=== PATIENT | female | born 1930 | race Caucasian/White ===

== ENCOUNTER 2016-08-25 11:56 | Inpatient (IN) | payer MEDICARE ==
[~2016-08-25] VITALS: Ht 157.5 cm; Wt 58.7 kg
[~2016-08-25 11:56] MED LIST: AMIO200T2 PO; AMIO200T7 PO; ASPI81TA2 PO; CALC1TAB PO; CALC3.7S NS; DIPH25CA58 PO; DOCU50CA9 PO; DRON400T PO; FLEC50TA PO; LOSA25TA4 PO; METO100T11 PO; MULT-658 PO; WARF2TAB PO; [UNRECOGNIZED DRUG - CODE] PO
[2016-08-25 15:00] VITALS: BP 128/88
[2016-08-25 15:13] VITALS: BP 128/88
[2016-08-25] MEDS ORDERED: DILTIAZEM 125 MG in IV DEXTROSE 5% 100 ML IV PRN ×2 (16:00→16:30)
--- NOTE | 2016-08-25 16:04 | PDOC2 ---
DINA GONZALEZ DIRECTOR PRESALES 08/25/16 1604: CARDIAC CONSULT DATE OF CONSULT Date of Consult DATE: 08/25/16 TIME: 15:50 REASON FOR CONSULT Reason for Consult: AFIB RVR REFERRING PHYSICIAN Referring Physician: Omar SOURCE Source: Chart review, Patient HISTORY OF PRESENT ILLNESS HISTORY OF PRESENT ILLNESS This is a pleasant 85 yo female admitted for complains of palpitations. Pt is significant for PAFIB (with past cardioversion) and has been treated with several rhythm maintenance medications but did not respond well with amiodarone and unable to tolerate flecainide. Reports that she tried multaq but unable to afford so she ended up with metoprolol optimization with coumadin therapy. She was seen in our office on 08/11/2016 and was on SR. Since then she has been having bouts of palpitations and it has become more frequent. Last Monday she had palpitations and noted that her BP was good but her HR was in the 200s which eventually got better. She contacted her granddaughter and told her to go to the hospital but refused. Again this happened Monday. During that time she felt fatigued like her energy got drained out of her. Denies any CP, SOA. No dizziness. Reports no excessive caffeinated beverages, no cold medicines and has been complaint with her medications. Reports that ther palpitations has been occurring and finally contacted her PCP which she was advised to be seen today and was noted with AFIB RVR and was instructed to be admitted. Currently she denies any complaints but her HR is int he 120s at rest. No prior CAD, VTE, CVA. No hx of GI, urinary bleed. No recent fever or chills. PAST MEDICAL HISTORY Cardiovascular: AFIB, HTN, Hyperlipidemia, Other (right atrial myxoma) Pulmonary: No pertinent hx CENTRAL NERVOUS SYSTEM: Other (hemorrhagic CVA 3 yrs ago) GI: No pertinent hx Heme/Onc: Other (chronic anticoagulation) Hepatobiliary: No pertinent hx Psych: No pertinent hx Musculoskeletal: Osteoarthritis Rheumatologic: No pertinent hx Infectious disease: No pertinent hx ENT: No pertinent hx Renal/: No pertinent hx Endocrine: Hypothyroidism, Osteopenia Dermatology: No pertinent hx PAST SURGICAL HISTORY Past Surgical History: Cataract Removal, Hernia Repair, Tonsillectomy, Other ( LHC; open thoracotomy with atrial myxoma removal) SOCIAL HISTORY Smoke: No ALCOHOL: none Drugs: None Lives: with Family ALLERGIES ALLERGIES: Coded Allergies: ciprofloxacin (Verified Allergy, Severe, HULLICINATE, 01/09/15) hydrocodone (Verified Allergy, Severe, HALLUCINATIONS, 01/09/15) losartan (Verified Allergy, Intermediate, Cough, 01/08/15) morphine (Verified Allergy, Intermediate, 01/08/15) naproxen (Verified Allergy, Intermediate, LEG CRAMPS, 08/26/16) tramadol (Verified Allergy, Intermediate, Itching, 08/26/16) QUIRINO Inhibitors (Verified Adverse Reaction, Intermediate, COUGH, 01/08/15) amiodarone (Verified Adverse Reaction, Intermediate, 01/08/15) hair loss ROS Review of System 14 point ROS evaluated with pertinent positives noted per HPI PHYSICAL EXAM General: Alert, Oriented X3, Cooperative, No acute distress HEENT: Atraumatic, Mucous membr. moist/pink Lungs: Clear to auscultation, Normal air movement Heart: Normal S1, Normal S2, Other (2/6 systolic murmur to LLS border; AFIB RVR ) Abdomen: Soft, No tenderness Extremities: No cyanosis, No edema Skin: No breakdown, No significant lesion Neuro: Normal speech, Sensation intact Psych/Mental Status: Mental status NL, Mood NL MUSCULOSKELETAL: Osteoarthritic changes both hands VITALS VITALS Vital Signs Date Time Temp Pulse Resp B/P Pulse Ox O2 Delivery O2 Flow Rate FiO2 08/25/16 15:13 97.7 137 18 128/88 Room Air 97.7 ECHOCARDIOGRAM ECHOCARDIOGRAM <Conclusion> The left ventricle is normal size. Left ventricle systolic function is normal. The Ejection Fraction is 55-60%. There is no significant aortic valvular stenosis. Doppler and Color Flow revealed trace aortic regurgitation. Doppler and Color Flow revealed mild mitral regurgitation. Doppler and Color Flow revealed mild tricuspid regurgitation. The PA pressure was estimated at 31 mmHg. DATE: 03/02/16 1218 STRESS TEST STRESS TEST Conclusion 1. Lexiscan nuclear test done according to protocol. 2. Baseline atrial fibrillation that continues during the test. 3. Baseline mild non specific ST changes that do not change with stress. 4. Nuclear scans show no fixed or reversible ischemia. 5. Normal left ventricular systolic function. 6. Low risk Lexiscan test. DATE: 05/23/13 1311 ASSESSMENT/PLAN ASSESSMENT/PLAN 1. PAFIB with RVR: notable for poor tolerance with flecainide and amiodarone in the past. Last successful cardioversion on 12/2014. Recently stopped taking multaq due to cost concerns. 2. HTN: controlled. Allergic to ACEi/ARB 3. HLP 4. Hypothyroidism 5. Chronic warfarin therapy: for stroke prevention 6. Hx of right atrial myxoma: s/p excision 7. Hx of hemorrhagic CVA 3 yrs ago. Recommendations 1. Cardizem bolus and drip. Dig IV x1. Continue with coumadin therapy 2. Continue with secondary prevention 3. Agree with low dose sotalol pending renal function 4. CMP, Mg, TSH 5. TSH, limited TTE and note EF. 6. Serial EKGs. 7. Start GI prophylaxis. Problems: WENDI COHEN MD 08/26/16 0953: CARDIAC CONSULT ALLERGIES ALLERGIES: Coded Allergies: ciprofloxacin (Verified Allergy, Severe, HULLICINATE, 01/09/15) hydrocodone (Verified Allergy, Severe, HALLUCINATIONS, 01/09/15) losartan (Verified Allergy, Intermediate, Cough, 01/08/15) morphine (Verified Allergy, Intermediate, 01/08/15) naproxen (Verified Allergy, Intermediate, LEG CRAMPS, 08/26/16) tramadol (Verified Allergy, Intermediate, Itching, 08/26/16) QUIRINO Inhibitors (Verified Adverse Reaction, Intermediate, COUGH, 01/08/15) amiodarone (Verified Adverse Reaction, Intermediate, 01/08/15) hair loss ASSESSMENT/PLAN ASSESSMENT/PLAN Patient seen and examined 08/25/16. Agree with STATISTICAL MACHINE MECHANIC's assessment and plan. Patient well known to a practice with paroxysmal atrial fibrillation off any antiarrhythmic due to side effects and on long-term and accommodation presented with palpitations and was found to have atrial fibrillation with rapid ventricular response. Recent 2-D echo showed normal LV systolic function. Start Cardizem infusion for rate control and sotalol for antiarrhythmic therapy. Check EKG for QTc interval in the morning. Thank you for your consultation Problems: DINA GONZALEZ APRN Aug 25, 2016 16:04 WENDI COHEN MD Aug 26, 2016 09:53
[2016-08-25] MEDS ORDERED: DILTIAZEM IV PUSH 25 MG/5 ML VIAL. IVP ONE (16:30)
--- NOTE | 2016-08-25 16:34 | EKG ---
[facility] [address] [place] [address] Test Date: 2016-08-25 Test Time: 16:26:53 Pat Name: KAREN HALL Department: Room: 200 1 Gender: F Steel Rule Inspector: KIN : 1930 Requested By: MASSIEL PANIAGUA Order Number: [id number] Reading MD: Measurements Intervals [place] Rate: 108 P: CA: QRS: -41 QRSD: 86 T: 30 QT: 350 QTc: 473 Interpretive Statements IRREGULAR RHYTHM, NO P-WAVE FOUND ABNORMAL LEFT AXIS DEVIATION LEFT ANTERIOR FASCICULAR BLOCK ABNORMAL ECG RI6.01 Compared to ECG 05/10/2013 19:25:41 Left-axis deviation now present Sinus rhythm no longer present First degree AV block no longer present
[2016-08-25] MEDS ORDERED: DIGOXIN 500 MCG/2 ML AMPUL. IV ONE (16:45)
--- NOTE | 2016-08-25 16:53 | RAD ---
EXAM: Chest one view. HISTORY: Atrial fibrillation with rapid ventricular response. COMPARISON: 02/21/2013. FINDINGS: A frontal view of the chest is obtained. There are changes of coronary artery bypass grafting. Epicardial pacer leads are noted. Hyperinflation is consistent with chronic obstructive pulmonary disease. There is no pneumothorax or pleural effusion. The heart is moderately enlarged. The aorta is calcified and tortuous. Linear opacities in the left base most likely indicate atelectasis. A small sclerotic focus in the left proximal humerus is stable chronically and likely represents a benign chondroid lesion such as an enchondroma. IMPRESSION: 1. Moderate cardiomegaly. 2. Hyperinflation suggests chronic obstructive pulmonary disease.
[2016-08-25] MEDS: CALCIUM CARB/VIT D3 500/200 TABLET PO SCH (17:58)
[2016-08-25 18:58] LABS: BASO # 0.1 x10^3/uL (0.0-0.2); BASO % 1 % (0-3); EOS % 2 % (0-3); HEMATOCRIT 42.2 % (36.0-47.0); HEMOGLOBIN 13.6 g/dL (12.0-15.5); LYMPH # 1.4 x10^3/uL (1.0-4.8); LYMPH % 25 % (24-48); MEAN CORPUSCULAR HEMOGLOBIN 31 pg (25-35); MEAN CORPUSCULAR HGB CONC 32 g/dL (31-37); MEAN CORPUSCULAR VOLUME 95 fL (79-100); MONO % 10 % (0-9); NEUT % 63 % (31-73); PLATELET COUNT 89 x10^3/uL (140-400); RED BLOOD COUNT 4.46 x10^6/uL (3.50-5.40); RED CELL DISTRIBUTION WIDTH 14.3 % (11.5-14.5); WHITE BLOOD COUNT 5.5 x10^3/uL (4.0-11.0)
[2016-08-25 19:00] VITALS: BP 140/48
[2016-08-25 19:08] LABS: INR 1.9 (0.8-1.1); PROTHROMBIN TIME PATIENT 20.7 SEC (11.7-14.0)
[2016-08-25 19:14] LABS: ALBUMIN 3.8 g/dL (3.4-5.0); CALCIUM 9.5 mg/dL (8.5-10.1); CREATININE 0.8 mg/dL (0.6-1.0); GFR 68.5; POTASSIUM 4.1 mmol/L (3.5-5.1); TOTAL BILIRUBIN 0.6 mg/dL (0.2-1.0); TOTAL PROTEIN 7.6 g/dL (6.4-8.2)
[2016-08-25 19:51] VITALS: BP 120/59
[2016-08-25 21:00] VITALS: BP 149/76
[2016-08-25] MEDS: DIPHENHYDRAMINE HCL 25 MG CAPSULE PO SCH (21:06)
[2016-08-25] MEDS: FAMOTIDINE 20 MG TABLET. PO SCH (21:06)
[2016-08-25] MEDS: SOTALOL 80 MG TABLET. PO SCH (21:07)
--- NOTE | 2016-08-25 21:29 | PDOC ---
Provider Note Provider Note H&P dictated. #[id number] MASSIEL PANIAGUA MD Aug 25, 2016 21:29
[2016-08-25 23:24] VITALS: BP 129/67
[2016-08-26] VITALS (9 sets, daily range): BP systolic 102–157; BP diastolic 56–86
--- NOTE | 2016-08-26 00:29 | HP ---
ADMIT DATE: 08/25/2016 LOCATION: [facility] REASON FOR ADMISSION TO THE HOSPITAL: Atrial fibrillation with rapid ventricular response of 140. HISTORY OF PRESENT ILLNESS: The patient is an 85-year-old female with atrial fibrillation and also she had a left atrial myxoma, had a surgery done probably 20 years ago and she has been on Coumadin as well as digoxin and the patient on the weekend went to [facility]. She was feeling lightheaded, no energy. She did not pass out and she thinks her heart rate was close to 200, but she did not come to the hospital, came to the office today and EKG shows AFib with RVR close to 120-140 range. The patient was admitted to the hospital. PAST MEDICAL HISTORY: Atrial fibrillation, hypertension, hyperlipidemia, hypothyroidism, Left atrial myxoma. The patient had a subdural hematoma 3 years ago, on Coumadin at that time. PAST SURGICAL HISTORY: Had an open thoracotomy with left atrial myxoma removed, cataract surgery, hernia repair, tonsillectomy, had a subdural hematoma. ALLERGIES: TO CIPRO, HYDROCODONE, LOSARTAN, MORPHINE, NAPROXEN, TRAMADOL, QUIRINO INHIBITORS CAUSING COUGH, AMIODARONE, HAD HAIR LOSS. PERSONAL HISTORY: No history of smoking, alcohol or drug abuse. MEDICATIONS AT HOME: Aspirin 81 mg daily, calcitonin, Miacalcin nose spray daily, calcium with vitamin D twice a day, Benadryl p.r.n., Colace 100 mg daily, levothyroxine 125 mcg daily, she was holding 1 day a week, metoprolol XL 100 mg daily, multivitamin daily, Coumadin 3 mg daily. REVIEW OF SYMPTOMS: CARDIAC: No chest pain, some palpitations, no energy, feeling drained. GASTROINTESTINAL: No nausea or vomiting. NEUROLOGICAL: No passing out. Rest of the 14 systems was reviewed and negative. FAMILY HISTORY: Positive for hypertension and heart problems. PHYSICAL EXAMINATION: GENERAL: The patient is not in any distress. VITAL SIGNS: Temperature 97, pulse 137, respirations 18, blood pressure 128/88 and 95% on room air. HEENT: Head is atraumatic. Pupils equal. Oral cavity, dentures. NECK: Supple. Thyroid not enlarged. JVD not elevated. CHEST: Symmetrical. There is scar of heart surgery for left atrial myxoma. CARDIOVASCULAR: S1, S2 ,irregular tachycardic. LUNGS: Clear to auscultation. No wheezing. ABDOMEN: Soft. Bowel sounds present. EXTERNAL GENITALIA: No Wilkerson. RECTAL: Deferred. EXTREMITIES: No calf tenderness, no edema. Pulses 1+. NEUROLOGIC: Cranial nerves intact. Power 5/5 in all extremities. LABORATORY DATA: Shows a white count of 5, hemoglobin 13, platelets 89. Electrolytes show sodium 141, potassium 4.1, chloride 103, bicarb 29, BUN 12, creatinine 0.8, glucose 176. LFTs were normal. TSH 6.0. INR 1.9. Chest x-ray, cardiomegaly. EKG: Atrial fibrillation with rapid ventricular response. FINAL IMPRESSION: 1. Atrial fibrillation with rapid ventricular response on coumadin. 2. Palpitations, feeling of fatigue. 3. Hypothyroidism. 4. History of left atrial myxoma,had surgery. 5. History of subdural hematoma in the past, 3 years ago. 6. Osteoporosis. 7. Anticoagulation on coumdin PLAN: At this time, admit to the hospital, hydrate with IV fluids. Cardiology consult. The patient was given digoxin, started on Cardizem drip for heart rate control, continue on Coumadin, pharmacy to adjust the dose to keep between 2 and 3. Further recommendations to follow.ECHO for LVF. MASSIEL PANIAGUA MD DR: ANGELICA/everton JOB#: [id number] / [id number] TAMMY
[2016-08-26 04:26] LABS: BASO # 0.1 x10^3/uL (0.0-0.2); BASO % 1 % (0-3); EOS % 3 % (0-3); HEMOGLOBIN 13.1 g/dL (12.0-15.5); LYMPH # 1.5 x10^3/uL (1.0-4.8); LYMPH % 32 % (24-48); MEAN CORPUSCULAR HEMOGLOBIN 30 pg (25-35); MEAN CORPUSCULAR HGB CONC 32 g/dL (31-37); MEAN CORPUSCULAR VOLUME 95 fL (79-100); MONO % 12 % (0-9); NEUT % 52 % (31-73); PLATELET COUNT 84 x10^3/uL (140-400); RED BLOOD COUNT 4.33 x10^6/uL (3.50-5.40); RED CELL DISTRIBUTION WIDTH 14.1 % (11.5-14.5); WHITE BLOOD COUNT 4.7 x10^3/uL (4.0-11.0)
[2016-08-26 04:58] LABS: CHOLESTEROL/HDL RATIO 2.6
[2016-08-26 05:27] LABS: PROTHROMBIN TIME PATIENT 21.5 SEC (11.7-14.0)
--- NOTE | 2016-08-26 07:08 | EKG ---
[facility] [address] [place] [address] Test Date: 2016-08-26 Test Time: 07:06:10 Pat Name: KAREN HALL Department: Room: 200 1 Gender: F Natural Foods Clerk: ZANDER : 1930 Requested By: MASSIEL PANIAGUA Order Number: [id number] Reading MD: Measurements Intervals [place] Rate: 66 P: MA: QRS: -36 QRSD: 84 T: 44 QT: 386 QTc: 406 Interpretive Statements IRREGULAR RHYTHM, NO P-WAVE FOUND ABNORMAL LEFT AXIS DEVIATION LEFT ANTERIOR FASCICULAR BLOCK QRS(T) CONTOUR ABNORMALITY CONSISTENT WITH SEPTAL INFARCT AGE UNDETERMINED T ABNORMALITY IN ANTERIOR LEADS ABNORMAL ECG RI6.01 Compared to ECG 05/10/2013 19:25:41 Left-axis deviation now present Myocardial infarct finding now present T-wave abnormality now present Sinus rhythm no longer present First degree AV block no longer present
[2016-08-26 07:46] LABS: CALCIUM 9.1 mg/dL (8.5-10.1); CREATININE 0.7 mg/dL (0.6-1.0); GFR 79.9; POTASSIUM 3.9 mmol/L (3.5-5.1)
--- NOTE | 2016-08-26 08:59 | RAD ---
EXAM: CT head without contrast. HISTORY: Severe headache. History of subdural hematoma. TECHNIQUE: Computed tomography of the head was performed without intravenous contrast. COMPARISON: 05/12/2013. FINDINGS: There is no intracranial hemorrhage. Hypoattenuation within the periventricular white matter indicates mild to moderate chronic small vessel ischemic change. The ventricles are normal in size and position. The visualized paranasal sinuses appear clear. There are changes of bilateral cataract surgery. The temporal bones are unremarkable. The calvarium reveals no suspicious lesions. IMPRESSION: 1. No acute intracranial findings. 2. Mild to moderate chronic small vessel ischemic white matter change. *One or more of the following individualized dose reduction techniques were utilized for this examination: 1. Automated exposure control. 2. Adjustment of the mA and/or kV according to patient size. 3. Use of iterative reconstruction technique.
[2016-08-26] MEDS ORDERED: METOPROLOL SUCC 24HR ER 100 MG TAB.ER.24H. PO SCH (09:00)
[2016-08-26] MEDS: LEVOTHYROXINE 125 MCG TABLET PO SCH (09:55)
[2016-08-26] MEDS: SOTALOL 80 MG TABLET. PO SCH ×2 (09:56→21:46)
[2016-08-26] MEDS: CALCIUM CARB/VIT D3 500/200 TABLET PO SCH ×2 (09:57→16:54)
[2016-08-26] MEDS: ASPIRIN 81 MG TAB.CHEW PO SCH (09:57)
[2016-08-26] MEDS: DOCUSATE SODIUM 100 MG CAPSULE PO SCH (09:57)
[2016-08-26] MEDS: MULTIVITAMIN with MINERAL TABLET. PO SCH (09:58)
[2016-08-26] MEDS: CALCITONIN,SALMON NASAL 200 UNITS/SPRAY 3.7ML BOTTLE. NS SCH (09:58)
--- NOTE | 2016-08-26 10:12 | PDOC ---
PROGRESS NOTES Subjective Subjective feels better Objective Objective Vital Signs Date Time Temp Pulse Resp B/P Pulse Ox O2 Delivery O2 Flow Rate FiO2 08/26/16 09:56 67 129/71 08/26/16 07:00 97.9 18 95 Room Air 97.9 Intake and Output 08/26/16 07:00 Intake Total 400 ml Balance 400 ml Intake Oral 400 ml # Voids 4 Physical Exam Abdomen: Soft, No tenderness Heart: Normal S1, Normal S2, Other (2/6 systolic murmur to LLS border; AFIB RVR ) Extremities: No cyanosis, No edema General: Alert, Oriented X3, Cooperative, No acute distress HEENT: Atraumatic, Mucous membr. moist/pink Lungs: Clear to auscultation, Normal air movement MUSCULOSKELETAL: Osteoarthritic changes both hands Neuro: Normal speech, Sensation intact Psych/Mental Status: Mental status NL, Mood NL Skin: No breakdown, No significant lesion Assessment Assessment FINAL IMPRESSION: 1. Atrial fibrillation with rapid ventricular response. 2. Palpitations, feeling of fatigue. 3. Hypothyroidism. 4. History of left atrial myxoma. 5. History of subdural hematoma in the past, 3 years ago. 6. Osteoporosis. PLAN: ct head today iv cardizam drip. coumadin ,inr 2.9. labs ok .tsh slightly high. echo today. At this time, admit to the hospital, hydrate with IV fluids. Cardiology consult. The patient was given digoxin, started on Cardizem drip for heart rate control, on Coumadin, pharmacy to adjust the dose to keep between 2 and 3. Further recommendations to follow. Problems: Comment Review of Relevant I have reviewed the following items enma (where applicable) has been applied. Labs Laboratory Tests Test 08/25/16 18:45 08/26/16 03:18 White Blood Count 5.5x10^3/uL (4.0-11.0) 4.7x10^3/uL (4.0-11.0) Red Blood Count 4.46x10^6/uL (3.50-5.40) 4.33x10^6/uL (3.50-5.40) Hemoglobin 13.6g/dL (12.0-15.5) 13.1g/dL (12.0-15.5) Hematocrit 42.2% (36.0-47.0) 41.0% (36.0-47.0) Mean Corpuscular Volume 95fL (79-100) 95fL (79-100) Mean Corpuscular Hemoglobin 31pg (25-35) 30pg (25-35) Mean Corpuscular Hemoglobin Concent 32g/dL (31-37) 32g/dL (31-37) Red Cell Distribution Width 14.3% (11.5-14.5) 14.1% (11.5-14.5) Platelet Count 89x10^3/uL (140-400) 84x10^3/uL (140-400) Neutrophils (%) (Auto) 63% (31-73) 52% (31-73) Lymphocytes (%) (Auto) 25% (24-48) 32% (24-48) Monocytes (%) (Auto) 10% (0-9) 12% (0-9) Eosinophils (%) (Auto) 2% (0-3) 3% (0-3) Basophils (%) (Auto) 1% (0-3) 1% (0-3) Neutrophils # (Auto) 3.5x10^3uL (1.8-7.7) 2.4x10^3uL (1.8-7.7) Lymphocytes # (Auto) 1.4x10^3/uL (1.0-4.8) 1.5x10^3/uL (1.0-4.8) Monocytes # (Auto) 0.5x10^3/uL (0.0-1.1) 0.5x10^3/uL (0.0-1.1) Eosinophils # (Auto) 0.1x10^3/uL (0.0-0.7) 0.1x10^3/uL (0.0-0.7) Basophils # (Auto) 0.1x10^3/uL (0.0-0.2) 0.1x10^3/uL (0.0-0.2) Prothrombin Time 20.7SEC (11.7-14.0) 21.5SEC (11.7-14.0) Prothromb Time International Ratio 1.9 (0.8-1.1) 2.0 (0.8-1.1) Sodium Level 141mmol/L (136-145) 144mmol/L (136-145) Potassium Level 4.1mmol/L (3.5-5.1) 3.9mmol/L (3.5-5.1) Chloride Level 103mmol/L (98-107) 105mmol/L (98-107) Carbon Dioxide Level 29mmol/L (21-32) 30mmol/L (21-32) Anion Gap 9 (6-14) 9 (6-14) Blood Urea Nitrogen 12mg/dL (7-20) 11mg/dL (7-20) Creatinine 0.8mg/dL (0.6-1.0) 0.7mg/dL (0.6-1.0) Estimated GFR (Cockcroft-Gault) 68.5 79.9 BUN/Creatinine Ratio 15 (6-20) Glucose Level 176mg/dL (70-99) 85mg/dL (70-99) Calcium Level 9.5mg/dL (8.5-10.1) 9.1mg/dL (8.5-10.1) Total Bilirubin 0.6mg/dL (0.2-1.0) Aspartate Amino Transf (AST/SGOT) 23U/L (15-37) Alanine Aminotransferase (ALT/SGPT) 18U/L (14-59) Alkaline Phosphatase 79U/L (46-116) Total Protein 7.6g/dL (6.4-8.2) Albumin 3.8g/dL (3.4-5.0) Albumin/Globulin Ratio 1.0 (1.0-1.7) Thyroid Stimulating Hormone (TSH) 6.002uIU/mL (0.358-3.74) Triglycerides Level 77mg/dL (0-150) Cholesterol Level 143mg/dL (0-200) LDL Cholesterol, Calculated 72mg/dL (0-100) VLDL Cholesterol, Calculated 15mg/dL (0-40) HDL Cholesterol 56mg/dL (40-60) Cholesterol/HDL Ratio 2.6 Medications Current Medications Aspirin (Children'S Aspirin) 81 mg DAILY PO Last administered on 08/26/16 09: 57; Start 08/26/16 at 09:00 Calcitonin [place] (Miacalcin Nasal) 1 spray DAILY NS Last administered on 09:58; Start 08/26/16 at 09:00 Calcium/Vitamin D (Oscal D 500mg/ 200uts) 1 tab BIDWMEALS PO Last administered on 08/26/16 09:57; Start 08/25/16 at 17:00 Digoxin (Lanoxin) 500 mcg 1X ONCE IV Last administered on 08/25/16 17:58; Start 08/25/16 at 16:45; Stop 08/25/16 at 16:46; Status DC Diltiazem HCl 10 mg 10 mg 1X ONCE IVP Last administered on 08/25/16 17:05; Start 08/25/16 at 16:30; Stop 08/25/16 at 16:31; Status DC Diltiazem HCl/ Dextrose (Cardizem) 125 ml @ 0 mls/hr CONT PRN IV PRN; Start 08/25/16 at 16:00; Stop 08/25/16 at 16:32; Status DC Diltiazem HCl/ Dextrose (Cardizem) 125 ml @ 0 mls/hr CONT PRN IV SEE I/O RECORD Last administered on 08/25/16 17:06; Start 08/25/16 at 16:30 Diphenhydramine HCl (Benadryl) 25 mg HS PO Last administered on 08/25/16 21:06 ; Start 08/25/16 at 21:00 Docusate Sodium (Colace) 100 mg DAILY PO Last administered on 08/26/16 09:57; Start 08/26/16 at 09:00 Famotidine (Pepcid) 20 mg QHS PO Last administered on 08/25/16 21:06; Start 08/25/16 at 21:00 Levothyroxine Sodium (Synthroid) 125 mcg DAILYAC PO Last administered on 09:55; Start 08/26/16 at 07:30 Metoprolol Succinate (Toprol Xl) 100 mg DAILY PO ; Start 08/26/16 at 09:00; Stop 08/26/16 at 09:00; Status DC Multivitamins (Thera M Plus) 1 tab DAILY PO Last administered on 08/26/16 09: 58; Start 08/26/16 at 09:00 Sotalol HCl (Betapace) 40 mg BID PO Last administered on 08/26/16 09:56; Start 08/25/16 at 21:00 Warfarin Sodium (Coumadin Per Physician) 1 each PRN DAILY PRN MC SEE COMMENTS Last administered on 08/26/16t 07:37; Start 08/25/16 at 17:00 Warfarin Sodium (Coumadin) 3 mg DAILY16 PO ; Start 08/26/16 at 16:00 Vitals/I & O Vital Sign - Last 24 Hours 08/25/16 08/25/16 08/25/16 08/25/16 15:00 15:13 17:05 17:58 Temp 97.7 97.7 97.7 97.7 Pulse 137 137 111 111 Resp 18 18 B/P 128/88 128/88 128/88 128/88 O2 Delivery Room Air Room Air 08/25/16 08/25/16 08/25/16 08/25/16 19:00 19:30 19:51 21:00 Temp 97.8 97.8 Pulse 74 66 66 Resp 14 B/P 140/48 120/59 149/76 Pulse Ox 95 O2 Delivery Room Air Room Air 08/25/16 08/25/16 08/26/16 08/26/16 21:07 23:24 02:00 03:03 Temp 97.7 97.6 97.7 97.6 Pulse 66 65 64 66 Resp 16 16 B/P 120/59 129/67 126/56 102/60 Pulse Ox 95 96 O2 Delivery Room Air Room Air 08/26/16 08/26/16 08/26/16 08/26/16 04:00 06:00 07:00 09:56 Temp 97.9 97.9 Pulse 66 64 67 67 Resp 18 B/P 121/61 129/65 129/71 129/71 Pulse Ox 95 O2 Delivery Room Air Intake and Output 08/25/16 08/25/16 08/26/16 15:00 23:00 07:00 Intake Total 400 ml Balance 400 ml MASSIEL PANIAGUA MD Aug 26, 2016 10:12
--- NOTE | 2016-08-26 11:07 | PDOC ---
DINA GONZALEZ IMPRESSION PRINTER 08/26/16 1107: CARDIO Progress Notes Date and Time Date of Service 08/26/2016 Time of Evaluation 1000 Subjective Subjective: No Chest Pain, No shortness of breath, No Palpitations, No Dizziness Vitals Vitals Vital Signs Date Time Temp Pulse Resp B/P Pulse Ox O2 Delivery O2 Flow Rate FiO2 08/26/16 10:25 97.5 80 18 157/86 95 Room Air 97.5 Weight Weight [ ] Input and Output Intake and Output Intake and Output 08/26/16 07:00 Intake Total 400 ml Balance 400 ml Intake Oral 400 ml # Voids 4 Laboratory Labs Laboratory Tests Test 08/25/16 18:45 08/26/16 03:18 White Blood Count 5.5x10^3/uL (4.0-11.0) 4.7x10^3/uL (4.0-11.0) Red Blood Count 4.46x10^6/uL (3.50-5.40) 4.33x10^6/uL (3.50-5.40) Hemoglobin 13.6g/dL (12.0-15.5) 13.1g/dL (12.0-15.5) Hematocrit 42.2% (36.0-47.0) 41.0% (36.0-47.0) Mean Corpuscular Volume 95fL (79-100) 95fL (79-100) Mean Corpuscular Hemoglobin 31pg (25-35) 30pg (25-35) Mean Corpuscular Hemoglobin Concent 32g/dL (31-37) 32g/dL (31-37) Red Cell Distribution Width 14.3% (11.5-14.5) 14.1% (11.5-14.5) Platelet Count 89x10^3/uL (140-400) 84x10^3/uL (140-400) Neutrophils (%) (Auto) 63% (31-73) 52% (31-73) Lymphocytes (%) (Auto) 25% (24-48) 32% (24-48) Monocytes (%) (Auto) 10% (0-9) 12% (0-9) Eosinophils (%) (Auto) 2% (0-3) 3% (0-3) Basophils (%) (Auto) 1% (0-3) 1% (0-3) Neutrophils # (Auto) 3.5x10^3uL (1.8-7.7) 2.4x10^3uL (1.8-7.7) Lymphocytes # (Auto) 1.4x10^3/uL (1.0-4.8) 1.5x10^3/uL (1.0-4.8) Monocytes # (Auto) 0.5x10^3/uL (0.0-1.1) 0.5x10^3/uL (0.0-1.1) Eosinophils # (Auto) 0.1x10^3/uL (0.0-0.7) 0.1x10^3/uL (0.0-0.7) Basophils # (Auto) 0.1x10^3/uL (0.0-0.2) 0.1x10^3/uL (0.0-0.2) Prothrombin Time 20.7SEC (11.7-14.0) 21.5SEC (11.7-14.0) Prothromb Time International Ratio 1.9 (0.8-1.1) 2.0 (0.8-1.1) Sodium Level 141mmol/L (136-145) 144mmol/L (136-145) Potassium Level 4.1mmol/L (3.5-5.1) 3.9mmol/L (3.5-5.1) Chloride Level 103mmol/L (98-107) 105mmol/L (98-107) Carbon Dioxide Level 29mmol/L (21-32) 30mmol/L (21-32) Anion Gap 9 (6-14) 9 (6-14) Blood Urea Nitrogen 12mg/dL (7-20) 11mg/dL (7-20) Creatinine 0.8mg/dL (0.6-1.0) 0.7mg/dL (0.6-1.0) Estimated GFR (Cockcroft-Gault) 68.5 79.9 BUN/Creatinine Ratio 15 (6-20) Glucose Level 176mg/dL (70-99) 85mg/dL (70-99) Calcium Level 9.5mg/dL (8.5-10.1) 9.1mg/dL (8.5-10.1) Total Bilirubin 0.6mg/dL (0.2-1.0) Aspartate Amino Transf (AST/SGOT) 23U/L (15-37) Alanine Aminotransferase (ALT/SGPT) 18U/L (14-59) Alkaline Phosphatase 79U/L (46-116) Total Protein 7.6g/dL (6.4-8.2) Albumin 3.8g/dL (3.4-5.0) Albumin/Globulin Ratio 1.0 (1.0-1.7) Thyroid Stimulating Hormone (TSH) 6.002uIU/mL (0.358-3.74) Triglycerides Level 77mg/dL (0-150) Cholesterol Level 143mg/dL (0-200) LDL Cholesterol, Calculated 72mg/dL (0-100) VLDL Cholesterol, Calculated 15mg/dL (0-40) HDL Cholesterol 56mg/dL (40-60) Cholesterol/HDL Ratio 2.6 Physical Exam HEENT: Neck Supple W Full Motion Chest: Symmetric LUNGS: Clear to Auscultation Heart: S1S2, irregularly irregular Abdomen: Soft N/T Extremities: No Edema, No Calf Tenderness Neurology: alert, oriented, follow commands Assessment Assessment 1. PAFIB with RVR: alternating to atrial flutter/afib/SR. rate controlled 2. HTN: controlled but episodes at high end 3. HLP: lipids on goal 4. Hypothyroidism: not therapeutic with TSH at 6. 5. Chronic warfarin therapy: for stroke prevention. INR 2.0 6. Hx of right atrial myxoma: s/p excision 7. Hx of hemorrhagic CVA 3 yrs ago. Recommendations 1. Change cardizem to PO 120 mg CD. Continue with sotalol. Rx given 2. Will consider imdur if BP remains labile. completely DC home metoprolol. 5. Limited TTE pending 6. QTc today 406, repeat EKG tomorrow. 7. Anticipate DC to home tomorrow. WENDI COHEN MD 08/26/16 1610: CARDIO Progress Notes Assessment Assessment Patient seen and examined. Agree with FIELD CONTROL INSPECTOR's assessment and plan. Telemetry showed the patient is going in and out of sinus rhythm. Heart rate better controlled. Change Cardizem to by mouth. Continue sotalol. 2-D echo showed normal LV function. Continue warfarin. Possible discharge home in the morning. DINA GONZALEZ APRN Aug 26, 2016 11:07 WENDI COHEN MD Aug 26, 2016 16:10
--- NOTE | 2016-08-26 11:19 | CARD ---
APPROVED REPORT EXAM: Two-dimensional and M-mode echocardiogram with Doppler and color Doppler. Other Information Quality : GoodHR: 84bpm Rhythm : Atrial Fibrillation INDICATION Left ventricular ejection fraction evaluation 2D DIMENSIONS RVDd1.6 (2.9-3.5cm)IVSd0.9 (0.7-1.1cm) LVDd3.9 (3.9-5.9cm)PWd0.9 (0.7-1.1cm) LVDs2.5 (2.5-4.0cm)FS (%) 36.2 % SV43.3 mlLVEF(%)66.5 (>50%) LEFT VENTRICLE The left ventricle is normal size. There is normal left ventricular wall thickness. The left ventricu lar systolic function is normal. The Ejection Fraction is 60-65%. Not assessed at time of exam. RIGHT VENTRICLE The right ventricle is normal size. There is normal right ventricular wall thickness. The right ventr icular systolic function is normal. ATRIA The left atrium is mildly dilated. The right atrium size is normal. AORTIC VALVE The aortic valve is mildly sclerotic. There is no significant aortic valve stenosis. MITRAL VALVE Mitral annular calcification is mild. The mitral valve leaflets are thickened. There is no evidence o f mitral valve prolapse. There is no mitral valve stenosis. TRICUSPID VALVE The tricuspid valve is normal in structure and function. PULMONIC VALVE There is no pulmonic valvular stenosis. GREAT VESSELS The aortic root is normal in size. The ascending aorta is normal in size. Not assessed at exam time. PERICARDIAL EFFUSION There is no evidence of significant pericardial effusion. Critical Notification Critical Value: No <Conclusion> Limited echocardiogram. Color duplex not performed. The left ventricular systolic function is normal. The Ejection Fraction is 60-65%. The left atrium is mildly dilated. There is no evidence of significant pericardial effusion.
[2016-08-26] MEDS ORDERED: DILTIAZEM HCL 120 MG CAP.ER.24H PO SCH (11:30)
[2016-08-26] MEDS: WARFARIN 2 MG TABLET. PO SCH (16:54)
[2016-08-26] MEDS: FAMOTIDINE 20 MG TABLET. PO SCH (21:45)
[2016-08-26] MEDS: DIPHENHYDRAMINE HCL 25 MG CAPSULE PO SCH (21:46)
--- NOTE | 2016-08-27 05:53 | EKG ---
[facility] [address] [place] [address] Test Date: 2016-08-27 Test Time: 05:44:47 Pat Name: KAREN HALL Department: Room: 200 1 Gender: F Interface Engineer: PRISCILLA : [id number] Requested By: DINA GONZALEZ Order Number: [id number] Reading MD: Measurements Intervals [place] Rate: 92 P: OR: QRS: -50 QRSD: 84 T: 34 QT: 362 QTc: 453 Interpretive Statements IRREGULAR RHYTHM, NO P-WAVE FOUND ABNORMAL LEFT AXIS DEVIATION R-S TRANSITION ZONE IN V LEADS DISPLACED TO THE LEFT S1,S2,S3 PATTERN LEFT ANTERIOR FASCICULAR BLOCK CONSIDER LEFT VENTRICULAR HYPERTROPHY ST & T ABNORMALITY, CONSIDER ANTERIOR ISCHEMIA OR LEFT VENTRICULAR STRAIN ABNORMAL ECG RI6.01 Compared to ECG 05/10/2013 19:25:41 Left-axis deviation now present T-wave abnormality now present Possible ischemia now present Sinus rhythm no longer present First degree AV block no longer present
[2016-08-27 07:00] VITALS: BP 149/78
--- NOTE | 2016-08-27 07:35 | PDOC ---
OSWALDOABRAMGEETHA FILLING AND PACKING SUPERVISOR 08/27/16 0735: IM PROGRESS NOTES- Subjective Subjective no chest pain, no dyspnea Objective Objective alert appropriate Vitals Vital Signs Date Time Temp Pulse Resp B/P Pulse Ox O2 Delivery O2 Flow Rate FiO2 08/27/16 03:00 66 Room Air 08/26/16 23:36 97.6 22 134/67 96 97.6 Input & Output Intake and Output 08/27/16 07:00 Intake Total 760 ml Balance 760 ml Intake Oral 720 ml IV Total 40 ml # Voids 5 Physical Exam Physical Exam General appearance - alert,well appearing, and in no distress and oriented to person, place, and time Mental Status - alert, oriented to person, place, and time, affect appropriate to mood Head - normal Chest - clear to auscultation, no wheezes, rales or rhonchi, symmetric air entry Heart - S1 and S2 normal Abdomen - soft, nontender, nondistended, no masses or organomegaly Neurological - no acute focal neurological deficit Musculoskeletal - no muscular tenderness noted Extremities - no pedal edema Skin - warm and dry Labs Laboratory Tests Test 08/25/16 18:45 08/26/16 03:18 White Blood Count 5.5x10^3/uL (4.0-11.0) 4.7x10^3/uL (4.0-11.0) Red Blood Count 4.46x10^6/uL (3.50-5.40) 4.33x10^6/uL (3.50-5.40) Hemoglobin 13.6g/dL (12.0-15.5) 13.1g/dL (12.0-15.5) Hematocrit 42.2% (36.0-47.0) 41.0% (36.0-47.0) Mean Corpuscular Volume 95fL (79-100) 95fL (79-100) Mean Corpuscular Hemoglobin 31pg (25-35) 30pg (25-35) Mean Corpuscular Hemoglobin Concent 32g/dL (31-37) 32g/dL (31-37) Red Cell Distribution Width 14.3% (11.5-14.5) 14.1% (11.5-14.5) Platelet Count 89x10^3/uL (140-400) 84x10^3/uL (140-400) Neutrophils (%) (Auto) 63% (31-73) 52% (31-73) Lymphocytes (%) (Auto) 25% (24-48) 32% (24-48) Monocytes (%) (Auto) 10% (0-9) 12% (0-9) Eosinophils (%) (Auto) 2% (0-3) 3% (0-3) Basophils (%) (Auto) 1% (0-3) 1% (0-3) Neutrophils # (Auto) 3.5x10^3uL (1.8-7.7) 2.4x10^3uL (1.8-7.7) Lymphocytes # (Auto) 1.4x10^3/uL (1.0-4.8) 1.5x10^3/uL (1.0-4.8) Monocytes # (Auto) 0.5x10^3/uL (0.0-1.1) 0.5x10^3/uL (0.0-1.1) Eosinophils # (Auto) 0.1x10^3/uL (0.0-0.7) 0.1x10^3/uL (0.0-0.7) Basophils # (Auto) 0.1x10^3/uL (0.0-0.2) 0.1x10^3/uL (0.0-0.2) Prothrombin Time 20.7SEC (11.7-14.0) 21.5SEC (11.7-14.0) Prothromb Time International Ratio 1.9 (0.8-1.1) 2.0 (0.8-1.1) Sodium Level 141mmol/L (136-145) 144mmol/L (136-145) Potassium Level 4.1mmol/L (3.5-5.1) 3.9mmol/L (3.5-5.1) Chloride Level 103mmol/L (98-107) 105mmol/L (98-107) Carbon Dioxide Level 29mmol/L (21-32) 30mmol/L (21-32) Anion Gap 9 (6-14) 9 (6-14) Blood Urea Nitrogen 12mg/dL (7-20) 11mg/dL (7-20) Creatinine 0.8mg/dL (0.6-1.0) 0.7mg/dL (0.6-1.0) Estimated GFR (Cockcroft-Gault) 68.5 79.9 BUN/Creatinine Ratio 15 (6-20) Glucose Level 176mg/dL (70-99) 85mg/dL (70-99) Calcium Level 9.5mg/dL (8.5-10.1) 9.1mg/dL (8.5-10.1) Total Bilirubin 0.6mg/dL (0.2-1.0) Aspartate Amino Transf (AST/SGOT) 23U/L (15-37) Alanine Aminotransferase (ALT/SGPT) 18U/L (14-59) Alkaline Phosphatase 79U/L (46-116) Total Protein 7.6g/dL (6.4-8.2) Albumin 3.8g/dL (3.4-5.0) Albumin/Globulin Ratio 1.0 (1.0-1.7) Thyroid Stimulating Hormone (TSH) 6.002uIU/mL (0.358-3.74) Triglycerides Level 77mg/dL (0-150) Cholesterol Level 143mg/dL (0-200) LDL Cholesterol, Calculated 72mg/dL (0-100) VLDL Cholesterol, Calculated 15mg/dL (0-40) HDL Cholesterol 56mg/dL (40-60) Cholesterol/HDL Ratio 2.6 Meds Current Medications Aspirin (Children'S Aspirin) 81 mg DAILY PO Last administered on 08/26/16 09: 57; Start 08/26/16 at 09:00 Calcitonin [place] (Miacalcin Nasal) 1 spray DAILY NS Last administered on 09:58; Start 08/26/16 at 09:00 Diltiazem HCl (Cardizem 24hr Cd) 120 mg DAILY PO Last administered on 13:28; Start 08/26/16 at 11:30 Docusate Sodium (Colace) 100 mg DAILY PO Last administered on 08/26/16 09:57; Start 08/26/16 at 09:00 Levothyroxine Sodium (Synthroid) 125 mcg DAILYAC PO Last administered on 09:55; Start 08/26/16 at 07:30 Metoprolol Succinate (Toprol Xl) 100 mg DAILY PO ; Start 08/26/16 at 09:00; Stop 08/26/16 at 09:00; Status DC Multivitamins (Thera M Plus) 1 tab DAILY PO Last administered on 08/26/16 09: 58; Start 08/26/16 at 09:00 Warfarin Sodium (Coumadin) 3 mg DAILY16 PO Last administered on 08/26/16 16:54 ; Start 08/26/16 at 16:00 Assessment Assessment FINAL IMPRESSION: 1. Atrial fibrillation with rapid ventricular response. 2. Palpitations, feeling of fatigue. 3. Hypothyroidism. 4. History of left atrial myxoma. 5. History of subdural hematoma in the past, 3 years ago. 6. Osteoporosis. PLAN: AF RVR-HR 90s with talking, 120s with walking. consider increasing Cardizem to 240mg CD hypertensive heart disease LAE HTN-continue current meds CT head -negative INR 08/26 2.0 pending 08/27--current 3mg coumadin daily hypothyroidism-TSH mildly elevated-eval at appt out patient. DC initiated-RX written per cardiology, will not transmit to pharmacy. If changes, medications will need to be updated in DC meds but not transmitted-- written script. PLAN: ct head today iv cardizam drip. coumadin ,inr 2.9. labs ok .tsh slightly high. echo today. At this time, admit to the hospital, hydrate with IV fluids. Cardiology consult. The patient was given digoxin, started on Cardizem drip for heart rate control, on Coumadin, pharmacy to adjust the dose to keep between 2 and 3. Further recommendations to follow. Plan Plan For more details regarding further plans, please refer to the orders. ROEL RICE MD 08/27/16 1122: IM PROGRESS NOTES- Assessment Assessment Cardizem increased and monitor for one more day per cardiology. The patient was seen and examined by me. Chart reviewed and plan of care formulated. Discussed with, reviewed and agree with [facility]'s notes, plan of care and orders with modifications as necessary. For more details regarding further plans, please refer to the orders. GEETHA TIMMONS APRN Aug 27, 2016 07:35 ROEL RICE MD Aug 27, 2016 11:22
--- NOTE | 2016-08-27 07:36 | DISCH ---
DISCHARGE INSTRUCTIONS Condition on Discharge Condition on Discharge: Stable Activity After Discharge Activity Instructions for Disc: Activity as tolerated Diet after Discharge Diet after Discharge: Cardiac Contacting the DRLeela after DC Call your doctor for: Concerns you may have Follow-Up Follow up with: Dr. Nelson 3-5 days Warfarin Follow-Up Warfarin Follow UP: Dr. Nelson managing GEETHA TIMMONS APRN Aug 27, 2016 07:36
[2016-08-27] MEDS ORDERED: SOTA80TA PO (07:38)
[2016-08-27] MEDS ORDERED: DILT120C97 PO (07:38)
[2016-08-27] MEDS ORDERED: WARF2TAB PO (07:38)
[2016-08-27] MEDS: LEVOTHYROXINE 125 MCG TABLET PO SCH (08:02)
--- NOTE | 2016-08-27 09:03 | PDOC ---
CARDIO Progress Notes Date and Time Date of Service 08/27/2016 Time of Evaluation 0859 Subjective Subjective: No Chest Pain, No shortness of breath, No Dizziness, Other (palps when rate > about 115) Vitals Vitals Vital Signs Date Time Temp Pulse Resp B/P Pulse Ox O2 Delivery O2 Flow Rate FiO2 08/27/16 07:00 97.8 89 20 149/78 94 Room Air 97.8 Weight Weight [ ] Input and Output Intake and Output Intake and Output 08/27/16 07:00 Intake Total 760 ml Balance 760 ml Intake Oral 720 ml IV Total 40 ml # Voids 5 Physical Exam HEENT: Neck Supple W Full Motion Chest: Symmetric LUNGS: Clear to Auscultation Heart: S1S2, irregularly irregular, other (tele: atrial fib with intermittent RVR) Abdomen: Soft N/T Extremities: No Edema, No Calf Tenderness Neurology: alert, oriented, follow commands Assessment Assessment 1. atrial fib with RVR rates up into the 130s; palps with tachycardia but no chest pain echo with preserved LVEF of 60-65%; mild LAE noted TSH 6+; defer management to PCP increase diltiazem to 120 mg BID continue anti-arrhythmic - sotalol 40 mg BID OAC with warfarin - INR 2.0 on 08/25 2. remote history of atrial myxoma ? discharge tomorrow if rate controlled f/u with Dr. Peters in about 4 weeks JEFFERSON MASCORRO APRN Aug 27, 2016 09:03
[2016-08-27] MEDS: CALCIUM CARB/VIT D3 500/200 TABLET PO SCH ×2 (09:18→18:20)
[2016-08-27] MEDS: ASPIRIN 81 MG TAB.CHEW PO SCH (09:18)
[2016-08-27] MEDS: MULTIVITAMIN with MINERAL TABLET. PO SCH (09:18)
[2016-08-27] MEDS: DOCUSATE SODIUM 100 MG CAPSULE PO SCH (09:18)
[2016-08-27] MEDS: SOTALOL 80 MG TABLET. PO SCH ×2 (09:19→21:10)
[2016-08-27] MEDS: CALCITONIN,SALMON NASAL 200 UNITS/SPRAY 3.7ML BOTTLE. NS SCH (09:19)
[2016-08-27] MEDS: DILTIAZEM HCL 120 MG CAP.ER.24H PO SCH ×2 (09:19→21:11)
[2016-08-27 10:05] VITALS: BP 140/75
[2016-08-27 14:24] VITALS: BP 115/59
[2016-08-27] MEDS: WARFARIN 2 MG TABLET. PO SCH (18:20)
[2016-08-27 19:00] VITALS: BP 128/58
[2016-08-27] MEDS: FAMOTIDINE 20 MG TABLET. PO SCH (21:10)
[2016-08-27] MEDS: DIPHENHYDRAMINE HCL 25 MG CAPSULE PO SCH (21:11)
[2016-08-27 23:00] VITALS: BP 143/69
[2016-08-28 03:00] VITALS: BP 126/61
[2016-08-28] MEDS: LEVOTHYROXINE 125 MCG TABLET PO SCH (06:09)
[2016-08-28 07:00] VITALS: BP 162/75
[2016-08-28 07:05] LABS: INR 1.7 (0.8-1.1); PROTHROMBIN TIME PATIENT 19.1 SEC (11.7-14.0)
[2016-08-28] MEDS: CALCITONIN,SALMON NASAL 200 UNITS/SPRAY 3.7ML BOTTLE. NS SCH (09:00)
[2016-08-28] MEDS: DOCUSATE SODIUM 100 MG CAPSULE PO SCH (09:00)
[2016-08-28] MEDS: MULTIVITAMIN with MINERAL TABLET. PO SCH (09:39)
[2016-08-28] MEDS: DILTIAZEM HCL 120 MG CAP.ER.24H PO SCH (09:39)
[2016-08-28] MEDS: CALCIUM CARB/VIT D3 500/200 TABLET PO SCH (09:39)
[2016-08-28] MEDS: ASPIRIN 81 MG TAB.CHEW PO SCH (09:39)
[2016-08-28] MEDS: SOTALOL 80 MG TABLET. PO SCH (09:40)
--- NOTE | 2016-08-28 10:57 | PDOC ---
IM PROGRESS NOTES- Subjective Subjective no chest pain, no dyspnea Objective Objective alert appropriate Vitals Vital Signs Date Time Temp Pulse Resp B/P Pulse Ox O2 Delivery O2 Flow Rate FiO2 08/28/16 09:40 65 162/75 08/28/16 08:00 Room Air 08/28/16 07:00 98.2 16 97 98.2 Input & Output Intake and Output 08/28/16 07:00 Intake Total 1320 ml Balance 1320 ml Intake Oral 1320 ml # Voids 6 Physical Exam Physical Exam General appearance - alert,well appearing, and in no distress and oriented to person, place, and time Mental Status - alert, oriented to person, place, and time, affect appropriate to mood Head - normal Chest - clear to auscultation, no wheezes, rales or rhonchi, symmetric air entry Heart - S1 and S2 normal Abdomen - soft, nontender, nondistended, no masses or organomegaly Neurological - no acute focal neurological deficit Musculoskeletal - no muscular tenderness noted Extremities - no pedal edema Skin - warm and dry Labs Laboratory Tests Test 08/28/16 05:00 Prothrombin Time 19.1SEC (11.7-14.0) Prothromb Time International Ratio 1.7 (0.8-1.1) Laboratory Tests Test 08/28/16 05:00 Prothrombin Time 19.1SEC (11.7-14.0) Prothromb Time International Ratio 1.7 (0.8-1.1) Assessment Assessment FINAL IMPRESSION: 1. Atrial fibrillation with rapid ventricular response. 2. Palpitations, feeling of fatigue. 3. Hypothyroidism. 4. History of left atrial myxoma. 5. History of subdural hematoma in the past, 3 years ago. 6. Osteoporosis. PLAN: AF RVR-HR 90s with talking, 120s with walking. consider increasing Cardizem to 240mg CD hypertensive heart disease LAE HTN-continue current meds CT head -negative INR 08/26 2.0 pending 08/27--current 3mg coumadin daily hypothyroidism-TSH mildly elevated-eval at appt out patient. DC initiated-RX written per cardiology, will not transmit to pharmacy. If changes, medications will need to be updated in DC meds but not transmitted-- written script. PLAN: Cardizem increased yesterday.BP high but whould improve with increased dose of Cardizem. Ok to discharge.see on monday. Discharge Management - 35 minutes. For more details regarding further plans, please refer to the orders. Plan Plan For more details regarding further plans, please refer to the orders. ROEL RICE MD Aug 28, 2016 10:57
[2016-08-28 11:00] VITALS: BP 140/68
--- NOTE | 2016-08-28 21:33 | PDOC ---
Provider Note Provider Note Discharge summary dictated. #[id number] MASSIEL PANIAGUA MD Aug 28, 2016 21:33
--- NOTE | 2016-08-28 21:57 | DS ---
DATE OF DISCHARGE: 08/28/2016 REASON FOR ADMISSION TO THE HOSPITAL: AFib with rapid ventricular response. CONSULTATIONS: Dr. Peters. PROCEDURES DONE: Echocardiogram. COMPLICATIONS NOTED: None. HOSPITAL COURSE: The patient is an 85-year-old female with history of chronic AFib, on Coumadin. She also has left atrial myxoma, had surgery done. She was having dizziness, palpitations, came to the office, heart rate was 130, was admitted to the hospital, was given IV Cardizem and changed to oral Cardizem. Echo shows a good left ventricular function, left atrium is mildly dilated and systolic function was normal. The patient was discharged on oral Cardizem. She is also on Coumadin. INR is therapeutic FINAL DIAGNOSES: 1. Atrial fibrillation with rapid ventricular response. 2. Palpitations due to tachycardia from Afib. 3. Hypothyroidism. 4. Left atrial myxoma, had surgery done for that in the past. 5. Hypertension. 6. Hyperlipidemia. DISPOSITION: Home. DISCHARGE MEDICATIONS: See MRAD for discharge medications. MASSIEL PANIAGUA MD DR: ANGELICA/everton JOB#: [id number] / [id number] TAMMY
== END 2016-08-28 14:30 | disposition home or self-care (01) | DRG 310 ==
LOC: 2 NORTH 14:24
PROVIDERS: ADMIT Internal Medicine; ATTEND Internal Medicine
DX: I48.0 Paroxysmal atrial fibrillation (principal); D15.1 Benign neoplasm of heart; E03.9 Hypothyroidism, unspecified; E78.5 Hyperlipidemia, unspecified; M81.0 Age-related osteoporosis without current pathological fracture; M19.90 Unspecified osteoarthritis, unspecified site; I10 Essential (primary) hypertension; Z86.73 Personal history of transient ischemic attack (TIA), and cerebral infarction without residual deficits; Z79.01 Long term (current) use of anticoagulants; Z82.49 Family history of ischemic heart disease and other diseases of the circulatory system; Z88.8 Allergy status to other drugs, medicaments and biological substances; Z98.49 Cataract extraction status, unspecified eye; Z88.6 Allergy status to analgesic agent; Z88.1 Allergy status to other antibiotic agents; Z88.5 Allergy status to narcotic agent
CPT/HCPCS: 36415; 70450; 71010; 80048; 80053; 80061; 84443; 85027; 85610; 93005; 93306; J0630; J1160; J3490; Q0163

== ENCOUNTER → 2017-03-07 | Outpatient (CLI) | payer MEDICARE ==
[~2017-03-07] MED LIST changes: +ASPI-630 PO; -ASPI81TA2 PO; +DILT120C80 PO; +METO-247 PO; -METO100T11 PO; +SOTA80TA48 PO
--- NOTE | 2017-03-07 12:36 | RAD ---
Indication chronic right hip pain. Axial images through the elbows were obtained. No IV or gastrointestinal contrast was administered. Note is made of a previous examination of the abdomen and pelvis 4 years ago. There is a low-density mass associated with the right kidney compatible with a cyst similar to the previous exam. An acute or definite significant soft tissue finding in the visualized lower abdomen or pelvis is not seen. There are degenerative changes in the visualized lumbar spine. Significant degenerative change is also noted associated with the right hip. There is significant disc space narrowing and there are degenerative cystic changes involving the femoral head. 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 An acute bony finding is not seen PQRS Compliance Statement: One or more of the following individualized dose reduction techniques were utilized for this examination: 1. Automated exposure control 2. Adjustment of the mA and/or kV according to patient size 3. Use of iterative reconstruction technique
== END | disposition home or self-care (01) ==
LOC: CT 09:27
PROVIDERS: ATTEND Internal Medicine
DX: M16.11 Unilateral primary osteoarthritis, right hip (principal)
CPT/HCPCS: 72192

== ENCOUNTER → 2017-12-14 | Outpatient (CLI) | payer MEDICARE ==
[2017-12-14] MEDS: REGADENOSON 0.4 MG/5 ML DISP.SYRIN. IV (11:19)
== END | disposition home or self-care (01) ==
LOC: NM 09:12
DX: I08.3 Combined rheumatic disorders of mitral, aortic and tricuspid valves (principal); I48.2 Chronic atrial fibrillation; I27.20 Pulmonary hypertension, unspecified
CPT/HCPCS: 78452; 93017; 93306; 96374; 96375; 96376; A9500; J2785

== ENCOUNTER → 2018-01-29 | Outpatient (CLI) | payer MEDICARE ==
[~2018-01-29] MED LIST changes: -AMIO200T2 PO; +AMIO200T4 PO; +IBUP200T58 PO; +METO50TA6 PO
[2018-01-29 09:48] LABS: ALBUMIN 3.8 g/dL (3.4-5.0); CALCIUM 9.1 mg/dL (8.5-10.1); CREATININE 0.7 mg/dL (0.6-1.0); GFR 79.5; POTASSIUM 4.1 mmol/L (3.5-5.1)
[2018-01-29 09:59] LABS: BASO % 1 % (0-3); EOS # 0.1 x10^3/uL (0.0-0.7); EOS % 2 % (0-3); HEMATOCRIT 42.7 % (36.0-47.0); HEMOGLOBIN 14.1 g/dL (12.0-15.5); LYMPH # 1.2 x10^3/uL (1.0-4.8); LYMPH % 26 % (24-48); MEAN CORPUSCULAR HEMOGLOBIN 31 pg (25-35); MEAN CORPUSCULAR HGB CONC 33 g/dL (31-37); MEAN CORPUSCULAR VOLUME 94 fL (79-100); MONO # 0.4 x10^3/uL (0.0-1.1); MONO % 10 % (0-9); NEUT # 2.9 x10^3uL (1.8-7.7); NEUT % 62 % (31-73); PLATELET COUNT 199 x10^3/uL (140-400); RED BLOOD COUNT 4.56 x10^6/uL (3.50-5.40); RED CELL DISTRIBUTION WIDTH 13.3 % (11.5-14.5); WHITE BLOOD COUNT 4.6 x10^3/uL (4.0-11.0)
[2018-01-29 10:11] LABS: PROTHROMBIN TIME PATIENT 29.7 SEC (11.7-14.0)
--- NOTE | 2018-01-29 12:36 | EKG ---
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
[2018-01-29 12:50] LABS: BILIRUBIN,URINE NEGATIVE (NEG); CLARITY,URINE CLEAR; COLOR,URINE YELLOW; NITRITE,URINE NEGATIVE (NEG); PH,URINE 7.5; PROTEIN,URINE NEGATIVE (NEG-TRACE); UROBILINOGEN,URINE 0.2 mg/dL (0.2 mg/dL)
[2018-01-29 13:26] LABS: BACTERIA,URINE 0 /HPF (0-FEW); HYALINE CASTS, URINE OCCASIONAL /HPF; RBC,URINE 20-40 /HPF (0-2); SQUAMOUS EPITHELIAL CELL,UR FEW /LPF; WBC,URINE 0 /HPF (0-4)
--- NOTE | 2018-01-29 14:32 | RAD ---
AP and Lateral Views of the Chest 01/29/2018 1:22 PM Indication: PRE OP LEFT HIP REPLACEMENT ON 02/13/18
HX OF HYPERTENSION Comparison: Chest radiograph August 25, 2016 Findings: No pneumothorax or pleural effusion is seen. No acute-appearing consolidation is identified. The heart is mildly enlarged. Prior median sternotomy noted. There is a left subclavian single lead pacemaking device, new from prior study. Epicardial pacer leads are again noted. No acute osseous changes are identified. IMPRESSION: 1. No evidence of acute cardiopulmonary process is identified 2. Cardiomegaly, grossly unchanged 3. Interval placement of a left-sided subclavian single lead pacemaking device Electronically signed by: Angel Wang MD (01/29/2018 2:28 PM) [id number]
== END | disposition home or self-care (01) ==
LOC: SURGPAT 13:04
PROVIDERS: ATTEND Orthopaedic Surgery
DX: I51.7 Cardiomegaly (principal); I10 Essential (primary) hypertension; E78.5 Hyperlipidemia, unspecified; E03.9 Hypothyroidism, unspecified; Z86.73 Personal history of transient ischemic attack (TIA), and cerebral infarction without residual deficits; Z79.01 Long term (current) use of anticoagulants
CPT/HCPCS: 36415; 71046; 80048; 81001; 82040; 85025; 85610; 85651; 85730; 87641; 93005

== ENCOUNTER 2018-03-20 21:14 | Emergency (ER) | payer MEDICARE ==
[~2018-03-20] VITALS: Ht 160 cm; Wt 59.0 kg
[~2018-03-20 21:14] MED LIST changes: +HYDR-2867 PO; +HYDR-2868 PO; -LOSA25TA4 PO; +LOSA25TA5 PO; +MELO7.5T5 PO; +OXYC-323 PO
--- NOTE | 2018-03-20 22:27 | PHYS DOC ---
Past Medical History Past Medical History: Hypertension, UTI Additional Past Medical Histor: HIP REPLACEMENT SX. Past Surgical History: Hip Replacement Additional Past Surgical Histo: OPEN HEART SURGERY, L SIDE PACEMAKER PLACEMENT Alcohol Use: None Drug Use: None Adult General Chief Complaint Chief Complaint: HIP PAIN [facility] HPI Patient is a 87 year old female who presents with right hip pain. Patient is 2 weeks status post right total hip replacement. Patient reports she was not feeling well today and had an appointment with her primary care physician. She states her had difficulty getting her in and out of the car. She states she has a wound at the upper aspect of her incision site. She was started on doxycycline today by her primary care physician. She reports she is having worsening pain in the right hip. She has been taking ibuprofen at home without relief. She states she contacted her home health nurse this evening she was advised to come to ER for further evaluation. She denies any fever or chills. Review of Systems Review of Systems Constitutional: Denies fever or chills [] Respiratory: Denies cough or shortness of breath [] Cardiovascular: No additional information not addressed in HPI [] GI: Denies abdominal pain, nausea, vomiting Musculoskeletal: Reports right lower back and hip pain Integument: Wound to right upper thigh along incision site Neurologic: Denies focal weakness or sensory changes [] All other systems were reviewed and found to be within normal limits, except as documented in this note. Current Medications Current Medications Current Medications Medications (Trade) Dose Ordered Sig/[facility] Start Time Stop Time Status Last Admin Dose Admin Oxycodone/ Acetaminophen (Percocet 10/325) 1 tab 1X ONCE 03/21/18 01:00 03/21/18 01:01 DC 03/21/18 01:04 1 TAB Oxycodone/ Acetaminophen (Percocet 5/325) 1 tab 1X ONCE 03/20/18 22:30 03/20/18 22:31 DC 03/20/18 22:38 1 TAB Allergies Allergies Allergies Coded Allergies Type Severity Reaction Last Updated Verified ciprofloxacin Allergy Severe HALLUCINATIONS 02/13/18 Yes hydrocodone Allergy Severe HALLUCINATIONS 02/13/18 Yes losartan Allergy Intermediate Cough 02/13/18 Yes morphine Allergy Intermediate 02/13/18 Yes naproxen Allergy Intermediate LEG CRAMPS 02/13/18 Yes tramadol Allergy Intermediate Itching 02/13/18 Yes QUIRINO Inhibitors Adverse Reaction Intermediate COUGH 02/13/18 Yes amiodarone Adverse Reaction Intermediate 02/13/18 Yes Physical Exam Physical Exam Constitutional: Well developed, well nourished, no acute distress, non-toxic appearance. [] HENT: Normocephalic, atraumatic Eyes: PERRLA, EOMI, conjunctiva normal, no discharge. [] Neck: Normal range of motion, no tenderness, supple, no stridor. [] Cardiovascular:Heart rate regular rhythm, no murmur [] Lungs & Thorax: Bilateral breath sounds clear to auscultation [] Abdomen: Bowel sounds normal, soft, no tenderness Skin: Warm, dry, mild erythema with ulcerative wound at the right groin along the incision site Extremities: Tenderness and decreased range of motion to right hip Neurologic: Alert and oriented X 3, normal motor function, normal sensory function, no focal deficits noted. [] Psychologic: Affect normal, judgement normal, mood normal. [] Current Patient Data Vital Signs Vital Signs Date Time Temp Pulse Resp B/P (MAP) Pulse Ox O2 Delivery O2 Flow Rate FiO2 03/21/18 01:04 18 99 Room Air 03/21/18 00:45 62 199/79 (119) 03/20/18 21:40 98.2 98.2 Lab Values Laboratory Tests Test 03/20/18 22:47 White Blood Count 6.6 x10^3/uL (4.0-11.0) Red Blood Count 3.54 x10^6/uL (3.50-5.40) Hemoglobin 11.1 g/dL (12.0-15.5) L Hematocrit 33.8 % (36.0-47.0) L Mean Corpuscular Volume 96 fL (79-100) Mean Corpuscular Hemoglobin 31 pg (25-35) Mean Corpuscular Hemoglobin Concent 33 g/dL (31-37) Red Cell Distribution Width 14.8 % (11.5-14.5) H Platelet Count 244 x10^3/uL (140-400) Neutrophils (%) (Auto) 71 % (31-73) Lymphocytes (%) (Auto) 18 % (24-48) L Monocytes (%) (Auto) 10 % (0-9) H Eosinophils (%) (Auto) 0 % (0-3) Basophils (%) (Auto) 0 % (0-3) Neutrophils # (Auto) 4.7 x10^3uL (1.8-7.7) Lymphocytes # (Auto) 1.2 x10^3/uL (1.0-4.8) Monocytes # (Auto) 0.7 x10^3/uL (0.0-1.1) Eosinophils # (Auto) 0.0 x10^3/uL (0.0-0.7) Basophils # (Auto) 0.0 x10^3/uL (0.0-0.2) Sodium Level 140 mmol/L (136-145) Potassium Level 4.6 mmol/L (3.5-5.1) Chloride Level 102 mmol/L (98-107) Carbon Dioxide Level 27 mmol/L (21-32) Anion Gap 11 (6-14) Blood Urea Nitrogen 14 mg/dL (7-20) Creatinine 0.7 mg/dL (0.6-1.0) Estimated GFR (Cockcroft-Gault) 79.5 BUN/Creatinine Ratio 20 (6-20) Glucose Level 131 mg/dL (70-99) H Lactic Acid Level 1.1 mmol/L (0.4-2.0) Calcium Level 9.3 mg/dL (8.5-10.1) Total Bilirubin 0.6 mg/dL (0.2-1.0) Aspartate Amino Transferase (AST) 22 U/L (15-37) Alanine Aminotransferase (ALT) 15 U/L (14-59) Alkaline Phosphatase 84 U/L (46-116) Total Protein 7.2 g/dL (6.4-8.2) Albumin 3.6 g/dL (3.4-5.0) Albumin/Globulin Ratio 1.0 (1.0-1.7) Laboratory Tests 03/20/18 22:47 Laboratory Tests 03/20/18 22:47 EKG EKG [] Radiology/Procedures Radiology/Procedures [CT abdomen pelvis: No acute findings on radiology report ] Course & Med Decision Making Course & Med Decision Making Pertinent Labs and Imaging studies reviewed. (See chart for details) 2299 -- Dr. Mckay assumes care. [Patient able to ambulate with use of walker., Lab and imaging studies reviewed. Recommend follow-up with orthopedic doctor and PCP were knee continue outpatient rehabilitation.] Annamaria Disclaimer Dragon Disclaimer This electronic medical record was generated, in whole or in part, using a voice recognition dictation system. Departure Departure Referrals: MASSIEL PANIAGUA MD (PCP) EMELI REYNOLDS APRN Mar 20, 2018 22:27 CARRILLO MCKAY DO Mar 21, 2018 06:00
[2018-03-20] MEDS: oxyCODONE/APAP 5/325 1 TAB TABLET PO ONE (22:38)
--- NOTE | 2018-03-20 22:49 | RAD ---
AP pelvis radiograph to include AP and lateral radiographs of the right hip 03/20/2018 CLINICAL HISTORY: Right hip pain. Recent hip replacement. An AP digital radiograph of the pelvis to include both hips was obtained. AP and lateral digital radiographs of the right hip were obtained. The patient is post right DESIREE. No pelvic bone fracture is seen. Both hips are intact. No fracture or dislocation right hip is seen. Mild to moderate degenerative changes are seen involving left hip and both SI joints. IMPRESSION: No acute osseous abnormality is seen. Electronically signed by: Nicolas Gonzalez MD (03/20/2018 10:45 PM) [facility]
[2018-03-20 23:04] LABS: CALCIUM 9.3 mg/dL (8.5-10.1); CREATININE 0.7 mg/dL (0.6-1.0); GFR 79.5; POTASSIUM 4.6 mmol/L (3.5-5.1)
[2018-03-20 23:05] LABS: BASO % 0 % (0-3); EOS % 0 % (0-3); HEMATOCRIT 33.8 % (36.0-47.0); HEMOGLOBIN 11.1 g/dL (12.0-15.5); LYMPH # 1.2 x10^3/uL (1.0-4.8); LYMPH % 18 % (24-48); MEAN CORPUSCULAR HEMOGLOBIN 31 pg (25-35); MEAN CORPUSCULAR HGB CONC 33 g/dL (31-37); MEAN CORPUSCULAR VOLUME 96 fL (79-100); MONO # 0.7 x10^3/uL (0.0-1.1); MONO % 10 % (0-9); NEUT # 4.7 x10^3uL (1.8-7.7); NEUT % 71 % (31-73); PLATELET COUNT 244 x10^3/uL (140-400); RED BLOOD COUNT 3.54 x10^6/uL (3.50-5.40); RED CELL DISTRIBUTION WIDTH 14.8 % (11.5-14.5); WHITE BLOOD COUNT 6.6 x10^3/uL (4.0-11.0)
[2018-03-20 23:10] LABS: ALBUMIN 3.6 g/dL (3.4-5.0); TOTAL BILIRUBIN 0.6 mg/dL (0.2-1.0); TOTAL PROTEIN 7.2 g/dL (6.4-8.2)
[2018-03-21 00:45] VITALS: BP 199/79
[2018-03-21] MEDS: oxyCODONE/APAP 10/325 1 TAB TABLET PO ONE (01:04)
[2018-03-27] MEDS ORDERED: HYDR2TAB PO (21:16)
[2018-03-30] MEDS ORDERED: BISA5TAB4 PO (10:10)
[2018-03-30] MEDS ORDERED: MOVANTIK12.5 MG PO (10:10)
== END 2018-03-21 01:07 | disposition home or self-care (01) ==
LOC: ER 21:14
DX: M25.551 Pain in right hip (principal); L53.8 Other specified erythematous conditions; I10 Essential (primary) hypertension; Z96.641 Presence of right artificial hip joint; Z87.440 Personal history of urinary (tract) infections; Z95.0 Presence of cardiac pacemaker; Z88.1 Allergy status to other antibiotic agents; Z88.5 Allergy status to narcotic agent; Z88.8 Allergy status to other drugs, medicaments and biological substances
CPT/HCPCS: 36415; 73502; 80053; 83605; 85025; 99285-25

== ENCOUNTER → 2019-05-24 | Outpatient (CLI) | payer MEDICARE ==
[2018-03-30 11:00] VITALS: BP 126/49
[~2019-05-24] MED LIST changes: +BISA5TAB4 PO; -DILT120C80 PO; +DILT120C99 PO; +HYDR2TAB PO; -LOSA25TA5 PO; +LOSA25TA54 PO; +MOVANTIK12.5 MG PO; -OXYC-323 PO; +OXYC1TAB15 PO
--- NOTE | 2019-05-24 13:38 | RAD ---
Complete abdomen ultrasound study Clinical indications: Right upper quadrant abdominal pain. FINDINGS: No focal enlargement of the pancreas is seen. The intrahepatic portion of the IVC is patent. No focal aneurysmal dilatation of the abdominal aorta is seen. The liver measures 15.4 cm in length and no hepatic mass is seen. The extra hepatic bile duct measures 4 mm in caliber which is normal. Gallbladder wall measures 3.2 mm in thickness which is at the upper limits of normal. No gallstones or biliary sludge are evident. Positive Sandhu's sign was elicited during transducer examination of the gallbladder of uncertain clinical significance. The length of the right kidney is 9.6 cm and the length left kidney is 9.2 cm. Prominent cyst of the right kidney is seen measuring 3.9 cm. No hydronephrosis or perinephric fluid collection is seen on either side. The spleen measures 8.1 cm in length which is normal. No ascites is evident. IMPRESSION: Gallbladder wall measures 3.2 mm in thickness which is at the upper limits of normal. No gallstones or biliary sludge are seen. Positive Sandhu's sign was elicited during transducer examination of the gallbladder of uncertain clinical significance. A hepatobiliary scan with gallbladder ejection fraction may be helpful for further evaluation. No extra hepatic biliary ductal dilatation is seen. Right renal cyst. Electronically signed by: Dami Tejeda MD (05/24/2019 1:35 PM) [facility]
== END ==
LOC: US 08:13
PROVIDERS: ATTEND Internal Medicine
DX: N28.1 Cyst of kidney, acquired (principal); I10 Essential (primary) hypertension; E78.5 Hyperlipidemia, unspecified; E03.9 Hypothyroidism, unspecified; I48.91 Unspecified atrial fibrillation
CPT/HCPCS: 76700

== ENCOUNTER 2019-09-22 10:14 | Emergency (ER) | payer MEDICARE ==
[~2019-09-22] VITALS: Ht 160 cm; Wt 60.0 kg
--- NOTE | 2019-09-22 10:38 | PHYS DOC ---
Past Medical History Past Medical History: A-Fib, Hypertension, UTI Additional Past Medical Histor: HIP REPLACEMENT SX. Past Surgical History: Hip Replacement Additional Past Surgical Histo: OPEN HEART SURGERY, L SIDE PACEMAKER PLACEMENT Smoking Status: Never Smoker Alcohol Use: None Drug Use: None Adult General Chief Complaint Chief Complaint: OTHER COMPLAINTS [facility] HPI Patient is a 88 year old female with multiple medical problems including A. fib on Coumadin who presents the ED today requesting her INR to be checked. Patient states she was put on Coumadin 5 mg on August 28, 2019 for A. fib. She states she has not been able to follow-up with her doctor for INR check due to stay at home orders related to coronavirus. She states on Monday she tripped on boxes in her house and fell landing on her left forearm and adjusted her coumadin to 3 mg. Patient denies any loss of consciousness, denies hitting her head on the ground. Review of Systems Review of Systems Constitutional: Denies fever or chills [] Eyes: Denies change in visual acuity, redness, or eye pain [] HENT: Denies nasal congestion or sore throat [] Respiratory: Denies cough or shortness of breath [] Cardiovascular: INR check, no additional information not addressed in HPI [] GI: Denies abdominal pain, nausea, vomiting, bloody stools or diarrhea [] : Denies dysuria or hematuria [] Musculoskeletal: Fall left shoulder pain, left forearm and hand bruising. Denies back pain Integument: Denies rash or skin lesions [] Neurologic: Denies headache, focal weakness or sensory changes [] All other systems were reviewed and found to be within normal limits, except as documented in this note. Allergies Allergies Allergies Coded Allergies Type Severity Reaction Last Updated Verified ciprofloxacin Allergy Severe HALLUCINATIONS 02/13/18 Yes hydrocodone Allergy Severe HALLUCINATIONS 02/13/18 Yes losartan Allergy Intermediate Cough 02/13/18 Yes morphine Allergy Intermediate 02/13/18 Yes naproxen Allergy Intermediate LEG CRAMPS 02/13/18 Yes tramadol Allergy Intermediate Itching 02/13/18 Yes QUIRINO Inhibitors Adverse Reaction Intermediate COUGH 02/13/18 Yes amiodarone Adverse Reaction Intermediate 02/13/18 Yes Physical Exam Physical Exam Constitutional: Well developed, well nourished, no acute distress, non-toxic appearance. [] HENT: Normocephalic, atraumatic, bilateral external ears normal, oropharynx moist, no oral exudates, nose normal. [] Eyes: PERRLA, EOMI, conjunctiva normal, no discharge. [] Neck: Normal range of motion, no tenderness, supple, no stridor. [] Cardiovascular:Heart rate regular rhythm, no murmur [] Lungs & Thorax: Bilateral breath sounds clear to auscultation [] Abdomen: Bowel sounds normal, soft, no tenderness, no masses, no pulsatile masses. [] Skin: Warm, dry, no erythema, no rash. [] Back: No tenderness, no CVA tenderness. [] Extremities: Left forearm and hand dorsal aspect with moderate ecchymosis. No tenderness, no cyanosis, no clubbing, ROM intact, no edema. Sensation intact to the left upper extremity. +2 left radial pulse. Neurologic: Alert and oriented X 3, normal motor function, normal sensory function, no focal deficits noted. Cranial nerves II through XII intact Psychologic: Affect normal, judgement normal, mood normal. [] Current Patient Data Vital Signs Vital Signs Date Time Temp Pulse Resp B/P (MAP) Pulse Ox O2 Delivery O2 Flow Rate FiO2 09/22/19 10:20 98.8 61 18 200/80 (120) 97 Room Air 98.8 Lab Values Laboratory Tests Test 09/22/19 10:35 White Blood Count 6.7 x10^3/uL (4.0-11.0) Red Blood Count 4.02 x10^6/uL (3.50-5.40) Hemoglobin 12.6 g/dL (12.0-15.5) Hematocrit 38.0 % (36.0-47.0) Mean Corpuscular Volume 95 fL (79-100) Mean Corpuscular Hemoglobin 32 pg (25-35) Mean Corpuscular Hemoglobin Concent 33 g/dL (31-37) Red Cell Distribution Width 13.9 % (11.5-14.5) Platelet Count 199 x10^3/uL (140-400) Neutrophils (%) (Auto) 73 % (31-73) Lymphocytes (%) (Auto) 17 % (24-48) L Monocytes (%) (Auto) 9 % (0-9) Eosinophils (%) (Auto) 1 % (0-3) Basophils (%) (Auto) 1 % (0-3) Neutrophils # (Auto) 4.8 x10^3/uL (1.8-7.7) Lymphocytes # (Auto) 1.1 x10^3/uL (1.0-4.8) Monocytes # (Auto) 0.6 x10^3/uL (0.0-1.1) Eosinophils # (Auto) 0.1 x10^3/uL (0.0-0.7) Basophils # (Auto) 0.1 x10^3/uL (0.0-0.2) Prothrombin Time 80.4 SEC (11.7-14.0) H Prothrombin Time INR 9.6 (0.8-1.1) *H Activated Partial Thromboplast Time 102 SEC (24-38) H Sodium Level 138 mmol/L (136-145) Potassium Level 4.2 mmol/L (3.5-5.1) Chloride Level 101 mmol/L (98-107) Carbon Dioxide Level 25 mmol/L (21-32) Anion Gap 12 (6-14) Blood Urea Nitrogen 11 mg/dL (7-20) Creatinine 0.8 mg/dL (0.6-1.0) Estimated GFR (Cockcroft-Gault) 68.0 Glucose Level 107 mg/dL (70-99) H Calcium Level 9.3 mg/dL (8.5-10.1) Laboratory Tests 09/22/19 10:35 Laboratory Tests 09/22/19 10:35 EKG EKG [] Radiology/Procedures Radiology/Procedures []PROCEDURE: FOREARM LEFT EXAM: Left shoulder, 3 views; left hand, 3 views; left forearm, 2 views. HISTORY: Fall. Pain. COMPARISON: None. FINDINGS: Left shoulder: 3 views of the left shoulder obtained. There is no fracture, dislocation or subluxation. There is a small suspected enchondroma within the left humeral head. There is cardiomegaly and a cardiac pacemaker partially included on the [id number]. There is degenerative change involving the cervical spine, not formally assessed on this exam. Left hand: 3 views of the left hand are obtained. There is no acute fracture. There is severe first carpometacarpal joint space narrowing with subchondral sclerosis, spurring and bony remodeling. Left forearm: 2 views of the lentiform are obtained. There is no fracture. There is suspected dorsal forearm soft tissue swelling. No foreign body is seen. IMPRESSION: 1. No acute osseous finding. 2. 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 3. 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 Electronically signed by: Jeannette Real MD (09/22/2019 10:55 AM) [facility] DICTATED and SIGNED BY: JEANNETTE REAL MD DATE: 09/22/19 1050 PROCEDURE: CT HEAD WO CONTRAST EXAM: Head CT without contrast. HISTORY: Fall on blood thinners. TECHNIQUE: Computed tomographic images of the head were obtained without contrast. *One or more of the following individualized dose reduction techniques were utilized for this examination: 1. Automated exposure control. 2. Adjustment of the mA and/or kV according to patient size. 3. Use of iterative reconstruction technique. COMPARISON: None. FINDINGS: There is no acute or subacute extra-axial or intraparenchymal hemorrhage. There is no mass effect or midline shift. There is no hydrocephalus. There are areas of decreased attenuation within the cerebral white matter, nonspecific and likely related to chronic small vessel disease. There is cerebral volume loss. The visualized portions of the orbits, paranasal sinuses and mastoid air cells are unremarkable. No suspicious calvarial lesion is seen. IMPRESSION: 1. No acute intracranial finding. 2. Bilateral cerebral white matter changes, likely due to chronic small vessel disease. Electronically signed by: Jeannette Real MD (09/22/2019 12:52 PM) [facility] DICTATED and SIGNED BY: JEANNETTE REAL MD DATE: 09/22/19 4228 Course & Med Decision Making Course & Med Decision Making Pertinent Labs and Imaging studies reviewed. (See chart for details) This is a 88-year-old female patient presenting to the ED today requesting her INR to be checked. Patient reports being on Coumadin 5 mg which she has adjusted to 3 mg after she fell down on Monday last week. Her INR has not been checked since August 28, 2019 due to stay at home orders related to coronavirus. Left hand x-rays, left forearm x-rays, left shoulder [id number] for any acute findings, CT of the head is negative for any acute findings. CBC, BMP-no acute findings, INR 8.6. Spoke with -he requested patient to hold her Coumadin dose for 3 days and try and get an appointment in the clinic as soon as possible. Dragon Disclaimer Dragon Disclaimer This electronic medical record was generated, in whole or in part, using a voice recognition dictation system. Departure Departure Impression: Primary Impression: Fall from standing Additional Impressions: Ecchymosis of forearm Contusion of left shoulder Elevated INR Disposition: HOME, SELF-CARE Condition: STABLE Referrals: MASSIEL PANIAGUA MD (PCP) Contact the office tomorrow and set up a follow-up appointment Patient Instructions: Fall Prevention and Home Safety, Prothrombin Time, International Normalized Ratio Additional Instructions: Your INR was 8.6. Dr. Paniagua requested you hold your Coumadin dose for 3 days. He requested you contact the office tomorrow and set up a follow-up appointment. Problem Qualifiers Primary Impression: Fall from standing Encounter type: initial encounter Qualified Codes: W19.XXXA - Unspecified fall, initial encounter Additional Impressions: Contusion of left shoulder Encounter type: initial encounter Qualified Codes: S40.012A - Contusion of left shoulder, initial encounter EVELYN RAYMUNDO PRINTING ESTIMATOR Sep 22, 2019 10:38
[2019-09-22 10:46] LABS: BASO # 0.1 x10^3/uL (0.0-0.2); BASO % 1 % (0-3); EOS # 0.1 x10^3/uL (0.0-0.7); EOS % 1 % (0-3); HEMOGLOBIN 12.6 g/dL (12.0-15.5); LYMPH # 1.1 x10^3/uL (1.0-4.8); LYMPH % 17 % (24-48); MEAN CORPUSCULAR HEMOGLOBIN 32 pg (25-35); MEAN CORPUSCULAR HGB CONC 33 g/dL (31-37); MEAN CORPUSCULAR VOLUME 95 fL (79-100); MONO # 0.6 x10^3/uL (0.0-1.1); MONO % 9 % (0-9); NEUT # 4.8 x10^3/uL (1.8-7.7); NEUT % 73 % (31-73); PLATELET COUNT 199 x10^3/uL (140-400); RED BLOOD COUNT 4.02 x10^6/uL (3.50-5.40); RED CELL DISTRIBUTION WIDTH 13.9 % (11.5-14.5); WHITE BLOOD COUNT 6.7 x10^3/uL (4.0-11.0)
[2019-09-22 10:53] LABS: CALCIUM 9.3 mg/dL (8.5-10.1); CREATININE 0.8 mg/dL (0.6-1.0); POTASSIUM 4.2 mmol/L (3.5-5.1)
--- NOTE | 2019-09-22 10:58 | RAD ---
EXAM: Left shoulder, 3 views; left hand, 3 views; left forearm, 2 views. HISTORY: Fall. Pain. COMPARISON: None. FINDINGS: Left shoulder: 3 views of the left shoulder obtained. There is no fracture, dislocation or subluxation. There is a small suspected enchondroma within the left humeral head. There is cardiomegaly and a cardiac pacemaker partially included on the [id number]. There is degenerative change involving the cervical spine, not formally assessed on this exam. Left hand: 3 views of the left hand are obtained. There is no acute fracture. There is severe first carpometacarpal joint space narrowing with subchondral sclerosis, spurring and bony remodeling. Left forearm: 2 views of the lentiform are obtained. There is no fracture. There is suspected dorsal forearm soft tissue swelling. No foreign body is seen. IMPRESSION: 1. No acute osseous finding. 2. 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 3. 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 Electronically signed by: Jeannette Monteiro MD (09/22/2019 10:55 AM) [facility]
--- NOTE | 2019-09-22 10:58 | RAD ---
EXAM: Left shoulder, 3 views; left hand, 3 views; left forearm, 2 views. HISTORY: Fall. Pain. COMPARISON: None. FINDINGS: Left shoulder: 3 views of the left shoulder obtained. There is no fracture, dislocation or subluxation. There is a small suspected enchondroma within the left humeral head. There is cardiomegaly and a cardiac pacemaker partially included on the [id number]. There is degenerative change involving the cervical spine, not formally assessed on this exam. Left hand: 3 views of the left hand are obtained. There is no acute fracture. There is severe first carpometacarpal joint space narrowing with subchondral sclerosis, spurring and bony remodeling. Left forearm: 2 views of the lentiform are obtained. There is no fracture. There is suspected dorsal forearm soft tissue swelling. No foreign body is seen. IMPRESSION: 1. No acute osseous finding. 2. 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 3. 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 Electronically signed by: Jeannette Monteiro MD (09/22/2019 10:55 AM) [facility]
--- NOTE | 2019-09-22 10:58 | RAD ---
EXAM: Left shoulder, 3 views; left hand, 3 views; left forearm, 2 views. HISTORY: Fall. Pain. COMPARISON: None. FINDINGS: Left shoulder: 3 views of the left shoulder obtained. There is no fracture, dislocation or subluxation. There is a small suspected enchondroma within the left humeral head. There is cardiomegaly and a cardiac pacemaker partially included on the [id number]. There is degenerative change involving the cervical spine, not formally assessed on this exam. Left hand: 3 views of the left hand are obtained. There is no acute fracture. There is severe first carpometacarpal joint space narrowing with subchondral sclerosis, spurring and bony remodeling. Left forearm: 2 views of the lentiform are obtained. There is no fracture. There is suspected dorsal forearm soft tissue swelling. No foreign body is seen. IMPRESSION: 1. No acute osseous finding. 2. 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 3. 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 Electronically signed by: Jeannette Monteiro MD (09/22/2019 10:55 AM) [facility]
[2019-09-22 11:48] LABS: PROTHROMBIN TIME PATIENT 80.4 SEC (11.7-14.0)
--- NOTE | 2019-09-22 12:55 | RAD ---
EXAM: Head CT without contrast. HISTORY: Fall on blood thinners. TECHNIQUE: Computed tomographic images of the head were obtained without contrast. *One or more of the following individualized dose reduction techniques were utilized for this examination: 1. Automated exposure control. 2. Adjustment of the mA and/or kV according to patient size. 3. Use of iterative reconstruction technique. COMPARISON: None. FINDINGS: There is no acute or subacute extra-axial or intraparenchymal hemorrhage. There is no mass effect or midline shift. There is no hydrocephalus. There are areas of decreased attenuation within the cerebral white matter, nonspecific and likely related to chronic small vessel disease. There is cerebral volume loss. The visualized portions of the orbits, paranasal sinuses and mastoid air cells are unremarkable. No suspicious calvarial lesion is seen. IMPRESSION: 1. No acute intracranial finding. 2. Bilateral cerebral white matter changes, likely due to chronic small vessel disease. Electronically signed by: Jeannette Monteiro MD (09/22/2019 12:52 PM) [facility]
[2019-09-22 13:00] VITALS: BP 165/70
== END 2019-09-22 13:30 | disposition home or self-care (01) ==
LOC: ER 10:14
DX: S50.12XA Contusion of left forearm, initial encounter (principal); S40.012A Contusion of left shoulder, initial encounter; R51 Headache; I10 Essential (primary) hypertension; I48.91 Unspecified atrial fibrillation; Z95.0 Presence of cardiac pacemaker; Z79.01 Long term (current) use of anticoagulants; Z88.1 Allergy status to other antibiotic agents; Z88.5 Allergy status to narcotic agent; Z88.6 Allergy status to analgesic agent; Z88.8 Allergy status to other drugs, medicaments and biological substances; W18.39XA Other fall on same level, initial encounter; Z91.81 History of falling; Y93.89 Activity, other specified; Y92.89 Other specified places as the place of occurrence of the external cause; Y99.8 Other external cause status
CPT/HCPCS: 36415; 70450; 73030; 73090; 73130; 80048; 85025; 85610; 85730; 99285-25

== ENCOUNTER 2019-10-06 10:47 | Emergency (ER) | payer MEDICARE ==
[~2019-10-06] VITALS: Ht 162.6 cm; Wt 59.0 kg
[2019-10-06] MEDS ORDERED: fentaNYL PF VIAL 100 MCG/2 ML VIAL IVP ONE (11:30)
[2019-10-06] MEDS ORDERED: fentaNYL PF VIAL 100 MCG/2 ML VIAL ONE (11:39)
[2019-10-06 11:59] LABS: RED BLOOD COUNT 3.67 x10^6/uL (3.50-5.40); WHITE BLOOD COUNT 6.9 x10^3/uL (4.0-11.0)
[2019-10-06 12:00] LABS: BASO % 0 % (0-3); EOS % 0 % (0-3); HEMATOCRIT 35.8 % (36.0-47.0); HEMOGLOBIN 11.8 g/dL (12.0-15.5); LYMPH # 0.9 x10^3/uL (1.0-4.8); LYMPH % 13 % (24-48); MEAN CORPUSCULAR HEMOGLOBIN 32 pg (25-35); MEAN CORPUSCULAR HGB CONC 33 g/dL (31-37); MEAN CORPUSCULAR VOLUME 97 fL (79-100); MONO # 0.6 x10^3/uL (0.0-1.1); MONO % 9 % (0-9); NEUT # 5.3 x10^3/uL (1.8-7.7); NEUT % 77 % (31-73); PLATELET COUNT 258 x10^3/uL (140-400); RED CELL DISTRIBUTION WIDTH 15.2 % (11.5-14.5)
[2019-10-06 12:05] LABS: PROTHROMBIN TIME PATIENT 34.2 SEC (11.7-14.0)
[2019-10-06 12:14] LABS: CALCIUM 9.1 mg/dL (8.5-10.1); CREATININE 0.7 mg/dL (0.6-1.0); GFR 79.3; POTASSIUM 4.3 mmol/L (3.5-5.1)
--- NOTE | 2019-10-06 12:16 | RAD ---
PROCEDURE: FOREARM RIGHT STUDY DATE: 10/06/2019 CLINICAL INDICATION / HISTORY: Right forearm pain after picking up a heavy object with bruising.. TECHNIQUE: Right forearm 2 views. AP and lateral views. COMPARISON: 09/22/2019 left forearm x-rays. FINDINGS: No fracture or dislocation is identified. The bone density appears normal. The wrist and elbow joints are approximated. Arterial calcifications are noted. Otherwise no soft tissue abnormality is seen.. IMPRESSION: No acute abnormality identified in the right forearm. Electronically signed by: Cortney Perla MD (10/06/2019 12:13 PM) [id number]
--- NOTE | 2019-10-06 12:18 | RAD ---
EXAM: CHEST 1 VIEW History: High blood pressure COMPARISON: 03/28/2028 TECHNIQUE: Single portable radiograph of the chest FINDINGS: Mild cardiomegaly. Left-sided cardiac pacer is identified. Mild diffuse prominent bilateral interstitial lung markings likely congestive changes. IMPRESSION: Mild congestive changes. Electronically signed by: Martin Carter MD (10/06/2019 12:15 PM) [id number]
--- NOTE | 2019-10-06 12:19 | PHYS DOC ---
Past Medical History Past Medical History: A-Fib, Hypertension, UTI Additional Past Medical Histor: HIP REPLACEMENT SX., heart tumor Past Surgical History: Hip Replacement Additional Past Surgical Histo: OPEN HEART SURGERY, L SIDE PACEMAKER PLACEMENT Smoking Status: Never Smoker Alcohol Use: None Drug Use: None General Adult EDM: Chief Complaint: UPPER EXTREMITY PAIN HPI: HPI: Patient is a 88 year old female with history of hypertension and atrial f ibrillation on Coumadin and pacemaker who presents via EMS with complaining of right arm pain and swelling. Patient states she lifted a heavy box to put in her car 3 days ago and since then has had ecchymosis and edema and pain of right forearm as a constant pain that gradually getting worse. Patient denies fall or other injuries. Patient states she had left forearm injury 2 weeks ago after she had a fall with the same change of color that resolved after stopping Coumadin for 3 days and decreasing the dose of Coumadin from 5 mg to 3 mg daily. Patient states her blood pressure this morning was more than 200 and several treated with a chest pain, shortness of breath, focal neuro deficit, headache, blurred vision and she decided to call 911. Patient denies shortness of breath and chest pain and other bleeding. Patient had blood pressure of 219/110 at arrival to ER. Review of Systems: Review of Systems: Constitutional: Denies fever or chills. [] Eyes: Denies change in visual acuity. [] HENT: Denies nasal congestion or sore throat. [] Respiratory: Denies cough or shortness of breath. [] Cardiovascular: Denies chest pain or edema. [] GI: Denies abdominal pain, nausea, vomiting, bloody stools or diarrhea. [] : Denies dysuria. [] Musculoskeletal: Denies back pain, report joint pain. [] Integument: Denies rash. [] Neurologic: Denies headache, focal weakness or sensory changes. [] Endocrine: Denies polyuria or polydipsia. [] Lymphatic: Denies swollen glands. [] Psychiatric: Denies depression or anxiety. [] Heart Score: Risk Factors: Risk Factors: DM, Current or recent (<one month) smoker, HTN, HLP, family h istory of CAD, obesity. Risk Scores: Score 0 - 3: 2.5% MACE over next 6 weeks - Discharge Home Score 4 - 6: 20.3% MACE over next 6 weeks - Admit for Clinical Observation Score 7 - 10: 72.7% MACE over next 6 weeks - Early Invasive Strategies Current Medications: Current Medications Medications (Trade) Dose Ordered Sig/Gavino Start Time Stop Time Status Last Admin Dose Admin Fentanyl Citrate (Fentanyl 2ml Vial) 100 mcg STK-MED ONCE 10/06/19 11:39 10/06/19 11:39 DC Allergies: Allergies: Allergies Coded Allergies Type Severity Reaction Last Updated Verified ciprofloxacin Allergy Severe HALLUCINATIONS 02/13/18 Yes hydrocodone Allergy Severe HALLUCINATIONS 02/13/18 Yes losartan Allergy Intermediate Cough 02/13/18 Yes morphine Allergy Intermediate 02/13/18 Yes naproxen Allergy Intermediate LEG CRAMPS 02/13/18 Yes tramadol Allergy Intermediate Itching 02/13/18 Yes QUIRINO Inhibitors Adverse Reaction Intermediate COUGH 02/13/18 Yes amiodarone Adverse Reaction Intermediate 02/13/18 Yes Physical Exam: PE: Constitutional: Well developed, well nourished, mild distress, non-toxic appearance. [] HENT: Normocephalic, atraumatic. Eyes: PERRLA, EOMI, conjunctiva normal, no discharge. [] Neck: Normal range of motion, no tenderness, supple, no stridor. [] Cardiovascular: Irregularly irregular rhythm, no murmur [] Lungs & Thorax: Bilateral breath sounds clear to auscultation [] Abdomen: Bowel sounds normal, soft, no tenderness, no masses, no pulsatile masses. [] Skin: Warm, dry, no erythema, no rash. [] Back: No tenderness, no CVA tenderness. [] Extremities: Right forearm with old ecchymosis in the volar side and tenderness and edema in the upper part of forearm close to e cubital area without sign of abscess, no cyanosis, no clubbing, ROM intact, no edema. [] Neurologic: Alert and oriented X 3, no focal deficits noted. [] Psychologic: Affect normal, judgement normal, mood normal. [] Current Patient Data: Labs: Laboratory Tests Test 10/06/19 10:54 White Blood Count 6.9 x10^3/uL (4.0-11.0) Red Blood Count 3.67 x10^6/uL (3.50-5.40) Hemoglobin 11.8 g/dL (12.0-15.5) L Hematocrit 35.8 % (36.0-47.0) L Mean Corpuscular Volume 97 fL (79-100) Mean Corpuscular Hemoglobin 32 pg (25-35) Mean Corpuscular Hemoglobin Concent 33 g/dL (31-37) Red Cell Distribution Width 15.2 % (11.5-14.5) H Platelet Count 258 x10^3/uL (140-400) Neutrophils (%) (Auto) 77 % (31-73) H Lymphocytes (%) (Auto) 13 % (24-48) L Monocytes (%) (Auto) 9 % (0-9) Eosinophils (%) (Auto) 0 % (0-3) Basophils (%) (Auto) 0 % (0-3) Neutrophils # (Auto) 5.3 x10^3/uL (1.8-7.7) Lymphocytes # (Auto) 0.9 x10^3/uL (1.0-4.8) L Monocytes # (Auto) 0.6 x10^3/uL (0.0-1.1) Eosinophils # (Auto) 0.0 x10^3/uL (0.0-0.7) Basophils # (Auto) 0.0 x10^3/uL (0.0-0.2) Laboratory Tests 10/06/19 10:54 Vital Signs: Vital Signs Date Time Temp Pulse Resp B/P (MAP) Pulse Ox O2 Delivery O2 Flow Rate FiO2 10/06/19 11:41 18 97 Room Air 10/06/19 10:47 98.3 59 219/110 (146) 98.3 EKG: EKG: EKG interpreted by me. EKG at 1144 showed atrial fibrillation at rate of 60, abnormal left axis deviation, nonspecific intraventricular block, RVH with repolarization abnormality, poor R wave progression in inferior leads, no acute ST and T wave elevation Radiology/Procedures: Radiology/Procedures: [facility] [address] [place] [address] IMAGING REPORT Signed PATIENT: KAREN HALL ACCOUNT: [id number] : 1930 LOCATION: ER AGE: 88 SEX: F EXAM STATUS: PRE ER ORD. PHYSICIAN: MARCK MCLAUGHLIN MD REASON: right forearm pain after picking up heavy object. bruising PROCEDURE: FOREARM RIGHT PROCEDURE: FOREARM RIGHT STUDY DATE: 10/06/2019 CLINICAL INDICATION / HISTORY: Right forearm pain after picking up a heavy object with bruising.. TECHNIQUE: Right forearm 2 views. AP and lateral views. COMPARISON: 09/22/2019 left forearm x-rays. FINDINGS: No fracture or dislocation is identified. The bone density appears normal. The wrist and elbow joints are approximated. Arterial calcifications are noted. Otherwise no soft tissue abnormality is seen.. IMPRESSION: No acute abnormality identified in the right forearm. Electronically signed by: Bety Perla MD (10/06/2019 12:13 PM) [id number] DICTATED and SIGNED BY: BETY PERLA MD DATE: 10/06/19 1213 [facility] [address] [place] [address] IMAGING REPORT Signed PATIENT: KAREN HALL ACCOUNT: [id number] : 1930 LOCATION: ER AGE: 88 SEX: F EXAM STATUS: REG ER ORD. PHYSICIAN: MARCK MCLAUGHLIN MD REASON: Right upper extremity pain and edema PROCEDURE: VENOUS UPPER EXTREMITY RIGHT Examination: Ultrasound right upper extremity venous system HISTORY: History of right upper extremity pain, edema COMPARISON: None available. Technique: Grayscale, color Doppler 2-D, spectral waveform analysis of the right upper extremity venous system was performed. FINDINGS: The right internal jugular vein, subclavian vein, cephalic, axillary, basilic, brachial, radial, ulnar veins are patent. There is a 6.0 x 3.2 x 2.8 cm complex partially cystic echogenicity identified in the soft tissue of the forearm probably a hematoma. IMPRESSION: 1. No evidence of deep venous thrombosis in the visualized right upper extremity venous system. 2. A 6.0 x 3.2 x 2.8 cm complex partially cystic echogenicity identified in the soft tissue of the forearm probably a hematoma. Follow-up to resolution. Electronically signed by: Martin Carter MD (10/06/2019 1:14 PM) [id number] DICTATED and SIGNED BY: MARTIN CARTER MD DATE: 10/06/19 0570 Course & Med Decision Making: Course & Med Decision Making Pertinent Labs and Imaging studies reviewed. (See chart for details) Evaluation of patient in ER showed 88-year-old male patient with history of A. fib on Coumadin and right forearm injury and complaining of elevated injection of blood pressure. Patient had blood pressure of 200 that decreased with Lasix 40 mg IV. Patient had BNP of more than 4000 without taking diuretic. Patient stated she drinking plenty of liquids. Patient did not want to stay at hospital and refused hospitalization. Dr. Paniagua patient primary care physician was informed at 1412 and agreed with discharging patient home with scription of Lasix and KCl. I've spoken with the patient and/or caregivers. I've explained the patient's condition, diagnosis and treatment plan based on information available to me at this time. I've answered the patient's and/or caregivers questions and addressed any concerns. The patient and/or caregivers have a good understanding the patient's diagnosis, condition and treatment plan as can be expected at this point. Vital signs have been stabilized. The patient's condition is stable for discharge from the emergency department. The patient will pursue further outpatient evaluation with her primary care provider or other designated consulting physician as outlined in the discharge instructions. Patient and/or caregivers are agreeable to this plan of care and follow-up instructions have been explained in detail. The patient and/or caregivers have received these instructions in written format and expressed understanding of these discharge instructions. The patient and her caregivers are aware that if any significant change in condition or worsening of symptoms should prompt him to immediately return to this of the closest emergency department. If an emergent department is not readily available I would encourage him to call 911. Annamaria Disclaimer: Annamaria Disclaimer: This electronic medical record was generated, in whole or in part, using a voice recognition dictation system. Departure Departure Impression: Primary Impression: Congestive heart failure Qualified Codes: I50.9 - Heart failure, unspecified Additional Impressions: Traumatic hematoma of right forearm Qualified Codes: S50.11XA - Contusion of right forearm, initial encounter Anticoagulated on Coumadin Accelerated hypertension Atrial fibrillation Qualified Codes: I48.11 - Longstanding persistent atrial fibrillation Disposition: HOME, SELF-CARE (At 1430) Condition: IMPROVED Referrals: MASSIEL PANIAGUA MD (PCP) Patient Instructions: Heart Failure, Hematoma, Managing Your High Blood Pressure, Warfarin, Questions and Answers Additional Instructions: Apply ice on the right forearm Follow-up with your primary care physician in 3-5 days Return to ER if not getting better Do not drink more than 4 to 6 cups of liquid a day Do not take Warfarin today Thank you for visiting [facility]. We appreciate you trusting us with your care. If any additional problems come up don't hesitate to return to visit us. Please follow up with your primary care provider so they can plan additional care if needed and know about the problem that you had. If symptoms worsen come back to the Emergency Department. Any concerning symptoms that start such as chest pain, shortness of air, weakness or numbness on one side of the body, running high fevers or any other concerning symptoms return to the ER. Scripts Acetaminophen With Codeine (TYLENOL WITH CODEINE #3 TABLET) 1 Each Tablet 1 TAB PO PRN Q6HRS PRN for PAIN, #10 TAB Prov: MARCK MCLAUGHLIN MD 10/06/19 Potassium Chloride (Klor-Con 10) 10 Meq Tablet.er 1 TAB PO DAILY for 30 Days, #30 TAB 0 Refills Prov: MARCK MCLAUGHLIN MD 10/06/19 Furosemide (LASIX) 20 Mg Tablet 1 TAB PO DAILY for 30 Days, #30 TAB 0 Refills Prov: MARCK MCLAUHGLIN MD 10/06/19 MARCK MCLAUGHLIN MD Oct 06, 2019 12:18
[2019-10-06 12:23] LABS: ALBUMIN 3.9 g/dL (3.4-5.0); ALBUMIN/GLOBULIN RATIO 1.1 (1.0-1.7); MAGNESIUM 2.1 mg/dL (1.8-2.4); TOTAL BILIRUBIN 0.8 mg/dL (0.2-1.0); TOTAL PROTEIN 7.5 g/dL (6.4-8.2)
--- NOTE | 2019-10-06 13:17 | RAD ---
Examination: Ultrasound right upper extremity venous system HISTORY: History of right upper extremity pain, edema COMPARISON: None available. Technique: Grayscale, color Doppler 2-D, spectral waveform analysis of the right upper extremity venous system was performed. FINDINGS: The right internal jugular vein, subclavian vein, cephalic, axillary, basilic, brachial, radial, ulnar veins are patent. There is a 6.0 x 3.2 x 2.8 cm complex partially cystic echogenicity identified in the soft tissue of the forearm probably a hematoma. IMPRESSION: 1. No evidence of deep venous thrombosis in the visualized right upper extremity venous system. 2. A 6.0 x 3.2 x 2.8 cm complex partially cystic echogenicity identified in the soft tissue of the forearm probably a hematoma. Follow-up to resolution. Electronically signed by: Martin Carter MD (10/06/2019 1:14 PM) [id number]
[2019-10-06 13:30] VITALS: BP 180/87
[2019-10-06] MEDS ORDERED: FUROSEMIDE 40 MG/4 ML VIAL. IVP ONE (14:00)
[2019-10-06] MEDS ORDERED: POTA10TA6 PO (14:19)
[2019-10-06] MEDS ORDERED: ACET-704 PO (14:19)
[2019-10-06] MEDS ORDERED: FURO-69 PO (14:19)
--- NOTE | 2019-10-06 19:25 | EKG ---
[facility] [address] [place] [address] Test Date: 2019-10-06 Test Time: 11:44:27 Pat Name: KAREN HALL Department: Room: Gender: F Capture Manager: : 1930 Requested By: MARCK MCLAUGHLIN Order Number: [id number] Reading MD: Vick Staurt MD Measurements Intervals [place] Rate: 60 P: IN: QRS: -85 QRSD: 142 T: 71 QT: 466 QTc: 466 Interpretive Statements PROBABLE V-PACED CONSIDER UNDERLYING AFIB Electronically Signed On 10-07-2019 8:40:37 CDT by Vick Stuart MD
== END 2019-10-06 14:40 | disposition home or self-care (01) ==
LOC: ER 10:47
DX: S50.11XA Contusion of right forearm, initial encounter (principal); I11.0 Hypertensive heart disease with heart failure; I50.9 Heart failure, unspecified; I48.11 Longstanding persistent atrial fibrillation; Z79.01 Long term (current) use of anticoagulants; Z95.0 Presence of cardiac pacemaker; Z88.1 Allergy status to other antibiotic agents; Z88.5 Allergy status to narcotic agent; Z88.6 Allergy status to analgesic agent; Z88.8 Allergy status to other drugs, medicaments and biological substances; X50.0XXA Overexertion from strenuous movement or load, initial encounter; Y93.89 Activity, other specified; Y92.89 Other specified places as the place of occurrence of the external cause; Y99.8 Other external cause status
CPT/HCPCS: 36415; 71045; 73090; 80053; 82550; 83735; 83880; 84484; 85025; 85610; 93005; 93971; 96374; 96375; 99285; J1940; J3010

== ENCOUNTER → 2020-12-17 | Outpatient (CLI) | payer MEDICARE ==
[~2020-12-17] MED LIST changes: +ACET-704 PO; -AMIO200T4 PO; +AMIO200T6 PO; -DRON400T PO; +DRON400T6 PO; +FURO-69 PO; +POTA10TA6 PO; +REGADENOSON 0.4 MG/5 ML DISP.SYRIN. IV ONE
--- NOTE | 2020-12-17 12:56 | CARD ---
MR#: [id number] Date of Study: 12/17/2020 Ordering Physician: WENDI PETERS, Referring Physician: Evangelista PEREZ: León Connor [facility] APPROVED REPORT EXAM: Two-dimensional and M-mode echocardiogram with Doppler and color Doppler. Other Information Quality : AverageHR: 60bpm Rhythm : Pacemaker INDICATION Atrial Fibrillation RISK FACTORS Hypertension 2D DIMENSIONS Left Atrium(2D)4.8 (1.6-4.0cm)IVSd1.0 (0.7-1.1cm) Aortic Root(2D)3.5 (2.0-3.7cm)LVDd4.7 (3.9-5.9cm) LVOT Diameter2.2 (1.8-2.4cm)PWd1.0 (0.7-1.1cm) LVDs2.7 (2.5-4.0cm)FS (%) 41.8 % SV74.5 mlLVEF(%)72.8 (>50%) Aortic Valve AoV Peak Won.215.5cm/sAoV VTI48.7cm AO Peak GR.18.6mmHgLVOT Peak Won.56.0cm/s AO Mean GR.10mmHgAVA (VMAX)1.02cm2 AI P 1/2 [id number] Mitral Valve MV E Xbfrawqr631.1cm/sMV E Peak Gr.7mmHg MV DECEL [id number] A Hhvefffg97.2cm/s MV E Mean Gr.2mmHgE/A Ratio3.7 Pulmonary Valve PV Peak Lsxkfroe880.5cm/s Tricuspid Valve TR P. Qanewmno742ty/sTR Peak Gr.40mmHg Pulmonary Vein S1 Phkdddzr53.0cm/sD2 Xqgfsssy00.3cm/s LEFT VENTRICLE The left ventricle is normal size. There is normal left ventricular wall thickness. The left ventricu lar systolic function is normal. The ejectioon fraction is 55%. There is normal LV segmental wall mot ion. Transmitral Doppler flow pattern is Grade III-reversible restrictive diastolic dysfunction. No l eft ventricle thrombus noted on this study. There is no ventricular septal defect visualized. There i s no left ventricular aneurysm. There is no mass noted in the left ventricle. RIGHT VENTRICLE The right ventricle is normal size. There is normal right ventricular wall thickness. The right ventr icular systolic function is normal. Pacemaker wire noted in RV ATRIA The left atrium is moderately dilated. The right atrium is moderately dilated. The interatrial septum is intact with no evidence for an atrial septal defect or patent foramen ovale as noted on 2-D or Do ppler imaging. AORTIC VALVE The aortic valve is mildly sclerotic. Doppler and Color Flow revealed mild aortic regurgitation. Ther e is mild valvular aortic stenosis. Calculated aortic valve area is 1.0 cm2 with maximum pressure gra dient of 19 mmHg and mean pressure gradient of 10 mmHg. There is no aortic valvular vegetation. MITRAL VALVE The mitral valve is normal in structure and function. There is no evidence of mitral valve prolapse. There is no mitral valve stenosis. Doppler and Color-flow revealed mild mitral regurgitation. TRICUSPID VALVE The tricuspid valve is normal in structure and function. Doppler and Color Flow revealed moderate tri cuspid regurgitation. There is no tricuspid valve prolapse or vegetation. There is no tricuspid valve stenosis. PULMONIC VALVE The pulmonary valve is normal in structure and function. Doppler and Color Flow revealed no pulmonic valvular regurgitation. There is no pulmonic valvular stenosis. GREAT VESSELS The aortic root is normal in size. The ascending aorta is normal in size. The pulmonary artery is nor mal. IVC is dilated and respiratory collapse is blunted suggesting elevated CVP PERICARDIAL EFFUSION There is no pleural effusion. There is no evidence of significant pericardial effusion. Critical Notification Critical Value: No <Conclusion> The left ventricular systolic function is normal. The ejectioon fraction is 55%. There is normal LV segmental wall motion. Pacer wire noted RA/RV. Moderate biatrial dilation. Mild aortic stenosis. Mild aortic regurgitation. Mild mitral regurgitation. Moderate tricuspid regurgitation. There is no evidence of significant pericardial effusion. Signed by : Wendi Peters, Electronically Approved : 12/17/2020 12:55:54
--- NOTE | 2020-12-17 14:45 | RAD ---
MR#: [id number] Date of Study: 12/17/2020 Ordering Physician: WENDI COHEN, Referring Physician: QUE PEREZ Tech: HEIDY Ernst ARRT (R) (N) APPROVED REPORT Test Type: Pharmacological Stress Nurse/Tech: Lowell Delaney RN Test Indications: A-Fib Cardiac History: HTN, PPM, See EMR. Medications: Coumadin, See EMR. Medical History: See EMR. Resting ECG: A-Fib/Paced Resting Heart Rate: 60 bpm Resting Blood Pressure: 201/65mmHg Pretest Chest Pain: No chest pain Nurse/Tech Notes Lungs CTA, Heart tones regular. Consent: The procedure was explained to the patient in lay terms. Informed consent was witnessed. Misael eout was entered into [employer]. History and Stress Test performed by HEIDY Ernst ARRT (R) (N) Pharm. Details Pharmacologic stress testing was performed using 0.4mg per 5ml of regadenoson given intravenously ove r 7-10 seconds. Stress Symptoms No chest pain or symptoms. POST EXERCISE Reason for Termination: Infusion complete Max HR: 66 bpm Max Blood Pressure: 188/55mmHg Blood Pressure response to exercise: Normal blood pressure response during stress. Heart Rate response to exercise: WNL Chest Pain: No. Arrhythmia: No. ST Change: No. INTERPRETATION Stress EKG Conclusion: Baseline EKG showed ventricular paced rhythm. Nondiagnostic changes at peak s tress. No arrhythmias Imaging Protocol IMAGE PROTOCOL: Rest Tc-99m/stress Tc-99m 1 day Rest: Stress: Viability: Radiopharm.Tc99m RlvcnfeaiFv72a Sestamibi Dfam29dWr 30mCi Img Date 12/17/2020 12/17/2020 Inj-Img [id number]. 60min. Rest Admin Site:IV - Left AntecubitalAdministrator:HEIDY Ernst ARRT (R)(N) Stress Admin Site: IV - Right AntecubitalAdministrator: HEIDY Ernst ARRT (R)(N) STRESS DATA End Diast. Vol.69.0mlLVEDV index BSA43.0ml End Syst. Vol.16.0mlLVESV index BSA10.0ml Myocardial Mass96.0gEject. Wdpntnwi86.0% Stress Scores Regional WT0.00Summed WT0.00 Regional WM0.00Summed WM0.00 Study quality was good. Left Ventricular size was Normal at Rest and Stress. Lung uptake was . Left Ventricular ejection fraction is 74%. The rest and stress images show normal perfusion, normal contraction and thickening. LV Perf. Quant 17 Seg. SSS1.00 17 Seg. SRS2.00 17 Seg. SDS1.00 Stress Defect Extent (% LAD)0.00Rest Defect Extent (% LAD)0.00Rev. Defect Extent (% LAD)0.00 Stress Defect Extent (% LCX) 7.50Rest Defect Extent (% LCX)0.00Rev. Defect Extent (% LCX)7.50 Stress Defect Extent (% RCA)0.00Rest Defect Extent (% RCA)0.00Rev. Defect Extent (% RCA)0.00 Stress Defect Extent (% RILEY)1.30Rest Defect Extent (% RILEY)0.00Rev. Defect Extent (% RILEY)1.30 Conclusion 1. Regadenoson cardioisotope stress test did not show any evidence of ischemia or infarct. 2. Normal left ventricular systolic function with ejection fraction calculated at 74%. 3. Low risk for cardiac events. Signed by : Wendi Cohen, Electronically Approved : 12/17/2020 14:44:35
== END ==
LOC: NM 09:34
PROVIDERS: ATTEND Internal Medicine Cardiovascular Disease
DX: I08.3 Combined rheumatic disorders of mitral, aortic and tricuspid valves (principal); I48.21 Permanent atrial fibrillation
CPT/HCPCS: 78452; 93017; 93306; A9500; J2785